=== PATIENT | female | born 1940 | race Caucasian/White ===

== ENCOUNTER 2016-12-18 17:55 | Emergency (ER) | payer MEDICARE, OTHER ==
[2016-12-18 18:32] VITALS: BP 143/80
--- NOTE | 2016-12-18 18:48 | EDM.PDOC ---
ED HPI GENERAL MEDICAL PROBLEM - General Chief Complaint: Upper Extremity Injury/Pain Stated Complaint: Fall at home, Left shoulder injury Time Seen by Provider: 12/18/16 18:30 Source of Information: Reports: Patient History Limitations: Reports: No Limitations - History of Present Illness INITIAL COMMENTS - FREE TEXT/NARRATIVE: Patient is a 76-year-old female who was presented to the ER with daughter stating that she was at home and fell hitting her left shoulder she underwent a left shoulder replacement about a month ago and now is working on physical therapy she called her surgeon and was asked to come in for evaluation Onset: Today Duration: Hour(s): Location: Reports: Upper Extremity, Left (Left shoulder) Quality: Reports: Ache Severity: Mild Improves with: Reports: Rest Worsens with: Reports: None Context: Reports: Trauma - Related Data Allergies Allergy/AdvReac Type Severity Reaction Status Date / Time Sulfa (Sulfonamide Allergy Hives Verified 12/18/16 17:57 Antibiotics) zolpidem [From Ambien] Allergy Hallucinati Verified 12/18/16 17:57 ons Home Meds: Home Meds Acetaminophen [Acetaminophen Extra Strength] 1,000 mg PO Q6HR PRN 12/18/16 [ History] Ascorbic Acid [Vitamin C] 1,000 mg PO DAILY 12/18/16 [History] Aspirin [Halfprin] 81 mg PO DAILY 12/18/16 [History] Calcium Carbonate [Tums] 500 mg PO DAILY PRN 12/18/16 [History] Cephalexin 250 mg PO BEDTIME 12/18/16 [History] Cholecalciferol (Vitamin D3) [Vitamin D3] 2,000 unit PO DAILY 12/18/16 [History] Cyanocobalamin (Vitamin B12) [Vitamin B12] 500 mcg PO DAILY 12/18/16 [History] Fish Oil/Jackson-3 Fatty Acids [Fish Oil 1,000 MG] 3,000 mg PO DAILY 12/18/16 [ History] L.acidoph,Paracasei, B.lactis [Probiotic] 1 cap PO BID 12/18/16 [History] Losartan [Cozaar] 100 mg PO DAILY 12/18/16 [History] Multivitamins [Tab-A-Moises] 1 tab PO DAILY 12/18/16 [History] Propranolol [Inderal LA] 60 mg PO DAILY 12/18/16 [History] Simvastatin [Zocor] 20 mg PO BEDTIME 12/18/16 [History] amLODIPine [Norvasc] 5 mg PO QAM 12/18/16 [History] metFORMIN [Glucophage] 1,000 mg PO BID 12/18/16 [History] Past Medical History - Past Surgical History Musculoskeletal Surgical History: Reports: Knee Replacement, Shoulder Replacement Other Musculoskeletal Surgeries/Procedures:: Left shoulder replacement, bilateral knee replacement. Social & Family History - Tobacco Use Smoking Status *Q: Never Smoker - Recreational Drug Use Recreational Drug Use: No Review of Systems - Review of Systems Review Of Systems: See Below Constitutional: Reports: No Symptoms Eyes: Reports: No Symptoms Ears: Reports: Other (Left hearing aid) Nose: Reports: No Symptoms Mouth/Throat: Reports: No Symptoms Respiratory: Reports: No Symptoms Cardiovascular: Reports: No Symptoms GI/Abdominal: Reports: No Symptoms Genitourinary: Reports: No Symptoms Musculoskeletal: Reports: Shoulder Pain (Secondary to left shoulder replacement) Skin: Reports: No Symptoms Neurological: Reports: No Symptoms Psychiatric: Reports: No Symptoms ED EXAM, GENERAL - Physical Exam Exam: See Below Exam Limited By: No Limitations General Appearance: Alert, WD/WN, No Apparent Distress Ears: Normal External Exam, Normal Canal, Hearing Grossly Normal, Normal TMs Nose: Normal Inspection, Normal Mucosa, No Blood Throat/Mouth: Normal Inspection Head: Atraumatic, Normocephalic Neck: Normal Inspection, Supple, Non-Tender, Full Range of Motion Respiratory/Chest: No Respiratory Distress, Lungs Clear, Normal Breath Sounds, No Accessory Muscle Use, Chest Non-Tender Cardiovascular: Normal Peripheral Pulses, Regular Rate, Rhythm, No Edema, No Gallop, No JVD, No Murmur, No Rub GI/Abdominal: Normal Bowel Sounds, Soft, Non-Tender, No Organomegaly, No Distention, No Abnormal Bruit, No Mass Back Exam: Normal Inspection, Full Range of Motion, NT Extremities: Normal Inspection, Normal Range of Motion, Non-Tender, No Pedal Edema, Normal Capillary Refill, Other (Left shoulder limited range of motion secondary to surgery) Neurological: Alert, Oriented, CN II-XII Intact, Normal Cognition, Normal Gait, Normal Reflexes, No Motor/Sensory Deficits Course - Vital Signs Last Recorded V/S: Last Vital Signs Temp 98.9 F 12/18/16 18:29 Pulse 68 10/04/17 18:29 Resp 14 12/18/16 18:29 BP 143/80 H 12/18/16 18:29 Pulse Ox 98 12/18/16 18:29 - Orders/Labs/Meds Orders: Active Orders 24 hr Category Date Time Status Shoulder Comp Lt [CR] Stat Exams 12/18/16 18:26 Ordered Departure - Departure Time of Disposition: 18:47 Disposition: Home, Self-Care 01 Condition: Good Clinical Impression: Status post reverse total arthroplasty of left shoulder - Discharge Information Referrals: Martina Ralph PA [Primary Care Provider] - Care Plan Goals: X-rays obtained shoulder appears to be in correct position with no limitations of motion as compared to prior to surgery patient denies any major pain - My Orders Last 24 Hours: My Active Orders 12/18/16 18:26 Shoulder Comp Lt [CR] Stat - Assessment/Plan Last 24 Hours: My Active Orders 12/18/16 18:26 Shoulder Comp Lt [CR] Stat
== END 2016-12-18 20:00 | disposition home or self-care (01) ==
LOC: LL.ED 17:55
DX: Z47.1 Aftercare following joint replacement surgery (principal); Z96.612 Presence of left artificial shoulder joint; Z88.2 Allergy status to sulfonamides; Z88.8 Allergy status to other drugs, medicaments and biological substances; Z79.82 Long term (current) use of aspirin; Z79.84 Long term (current) use of oral hypoglycemic drugs; Z79.899 Other long term (current) drug therapy; Z96.653 Presence of artificial knee joint, bilateral
CPT/HCPCS: 73030-LT; 99283

== ENCOUNTER 2021-10-23 20:52 | Inpatient (IN) | payer MEDICARE, OTHER ==
[2021-10-23] MEDS ORDERED: Sodium Chloride 0.9% 10 ML Syringe FLUSH PRN (20:57)
[2021-10-23] MEDS ORDERED: Sodium Chloride 0.9% 1,000 ML IV ONE (21:24)
[2021-10-23 21:57] LABS: CHLORIDE,CL 103 mmol/L (98-107); SODIUM,NA 135 mmol/L (136-145)
[2021-10-23 22:07] LABS: ANION GAP 13.6 meq/L (7-15); ESTIMATED GFR 31 mL/min (>=60)
[2021-10-23] MEDS ORDERED: Iopamidol 755 Mg/ML 100 ML Bottle IVPUSH ONE (22:25)
[2021-10-23] MEDS ORDERED: Diazepam 5 MG Tab PO ONE (22:33)
[2021-10-23] MEDS ORDERED: Morphine 2 MG/ML SYRINGE IVPUSH ONE (22:33)
[2021-10-23] MEDS ORDERED: Ondansetron 4 MG/2 ML SDV IVPUSH ONE (22:33)
[2021-10-23 22:57] LABS: CORONAVIRUS COVID-19 NAA NEGATIVE (NEGATIVE); RESPIRATORY SYNCYTIAL VIR NAA NEGATIVE (NEGATIVE)
[2021-10-24] MEDS ORDERED: Acetaminophen 325 MG Tab PO PRN (00:52)
[2021-10-24] MEDS ORDERED: Sodium Chloride 0.9% 1,000 ML IV SCH ×2 (01:00→14:00)
[2021-10-24] MEDS: cefTRIAXone 1 GM in Sodium Chloride 0.9% 100 ML IV SCH (01:21)
[2021-10-24] MEDS ORDERED: Calcium Carbonate 500 MG Tab.Chew PO PRN (11:24)
[2021-10-24] MEDS ORDERED: Propranolol 60 MG Cap.ER PO SCH (11:30)
[2021-10-24] MEDS ORDERED: Non-Formulary Medication 1 Each (Fluoxetine Hcl [Fluoxetine Hcl] 40 MG Capsule) PO SCH (11:30)
[2021-10-24] MEDS ORDERED: Non-Formulary Medication 1 Each (Losartan [Cozaar] 100 MG Tablet) PO SCH (11:30)
[2021-10-24] MEDS ORDERED: Furosemide 40 MG Tab PO SCH (11:30)
[2021-10-24] MEDS ORDERED: Furosemide 20 MG/2 ML VIAL IVPUSH ONE (11:35)
[2021-10-24] MEDS ORDERED: Losartan 50 MG Tab PO SCH (11:45)
[2021-10-24] MEDS ORDERED: Furosemide 20 MG Tab PO SCH (11:45)
[2021-10-24] MEDS ORDERED: amLODIPine 5 MG Tab PO SCH (11:45)
[2021-10-24] MEDS: FLUoxetine 20 MG Cap PO SCH (11:59)
[2021-10-24] MEDS: Potassium Chloride 20 MEQ Tab.ER PO SCH (11:59)
[2021-10-24] MEDS: Cholecalciferol (Vitamin D3) 25 MCG Tab PO SCH (11:59)
[2021-10-24 13:41] LABS: ANION GAP 13.8 meq/L (7-15); CHLORIDE,CL 103 mmol/L (98-107); ESTIMATED GFR 41 mL/min (>=60); SODIUM,NA 133 mmol/L (136-145)
[2021-10-24] MEDS: Propranolol 20 MG Tab PO SCH (18:04)
[2021-10-24] MEDS: QUEtiapine 25 MG Tab PO SCH (20:02)
[2021-10-24] MEDS: Simvastatin 20 MG Tab PO SCH (20:03)
[2021-10-24] MEDS: Enoxaparin 40 MG/0.4 ML Syringe SUBCUT SCH (21:49)
[2021-10-25] MEDS: cefTRIAXone 1 GM in Sodium Chloride 0.9% 100 ML IV SCH (00:55)
[2021-10-25] MEDS: Potassium Chloride 20 MEQ Tab.ER PO SCH (07:45)
[2021-10-25] MEDS: Cholecalciferol (Vitamin D3) 25 MCG Tab PO SCH (07:46)
[2021-10-25] MEDS: FLUoxetine 20 MG Cap PO SCH (07:46)
[2021-10-25] MEDS: amLODIPine 5 MG Tab PO SCH (07:46)
[2021-10-25] MEDS: Losartan 50 MG Tab PO SCH (07:47)
[2021-10-25] MEDS: Propranolol 20 MG Tab PO SCH ×2 (07:48→17:48)
[2021-10-25] MEDS: Furosemide 20 MG Tab PO SCH (07:48)
[2021-10-25] MEDS: PHENTERMINE HCL 37.5 MG PO SCH (07:51)
[2021-10-25 08:13] LABS: ANION GAP 6.6 meq/L (7-15)
[2021-10-25] MEDS: Enoxaparin 40 MG/0.4 ML Syringe SUBCUT SCH (19:34)
[2021-10-25] MEDS: QUEtiapine 25 MG Tab PO SCH (19:34)
[2021-10-25] MEDS: Simvastatin 20 MG Tab PO SCH (19:35)
[2021-10-26] MEDS: cefTRIAXone 1 GM in Sodium Chloride 0.9% 100 ML IV SCH (01:10)
[2021-10-26] MEDS: Cholecalciferol (Vitamin D3) 25 MCG Tab PO SCH (07:20)
[2021-10-26] MEDS: FLUoxetine 20 MG Cap PO SCH (07:20)
[2021-10-26] MEDS: metFORMIN 500 MG Tab PO SCH ×2 (07:21→17:24)
[2021-10-26] MEDS: Propranolol 20 MG Tab PO SCH ×2 (07:21→17:24)
[2021-10-26] MEDS: Furosemide 20 MG Tab PO SCH (07:22)
[2021-10-26] MEDS: amLODIPine 5 MG Tab PO SCH (07:23)
[2021-10-26] MEDS: Potassium Chloride 20 MEQ Tab.ER PO SCH (07:23)
[2021-10-26] MEDS: Losartan 50 MG Tab PO SCH (07:24)
[2021-10-26] MEDS: PHENTERMINE HCL 37.5 MG PO SCH (07:26)
[2021-10-26 08:14] LABS: ANION GAP 7.6 meq/L (7-15)
[2021-10-26] MEDS: Simvastatin 20 MG Tab PO SCH (20:03)
[2021-10-26] MEDS: QUEtiapine 25 MG Tab PO SCH (20:03)
[2021-10-26] MEDS: Enoxaparin 40 MG/0.4 ML Syringe SUBCUT SCH (20:05)
[2021-10-27] MEDS: cefTRIAXone 1 GM in Sodium Chloride 0.9% 100 ML IV SCH (01:33)
[2021-10-27] MEDS: Potassium Chloride 20 MEQ Tab.ER PO SCH (14:20)
[2021-10-27] MEDS: FLUoxetine 20 MG Cap PO SCH (14:20)
[2021-10-27] MEDS: Cholecalciferol (Vitamin D3) 25 MCG Tab PO SCH (14:21)
[2021-10-27] MEDS: Furosemide 20 MG Tab PO SCH (14:21)
[2021-10-27] MEDS: metFORMIN 500 MG Tab PO SCH ×2 (14:22→18:54)
[2021-10-27] MEDS: PHENTERMINE HCL 37.5 MG PO SCH (14:29)
[2021-10-27] MEDS: amLODIPine 5 MG Tab PO SCH (14:35)
[2021-10-27] MEDS: Losartan 50 MG Tab PO SCH (14:35)
[2021-10-27] MEDS: Propranolol 20 MG Tab PO SCH ×2 (14:36→18:54)
[2021-10-27] MEDS: QUEtiapine 25 MG Tab PO SCH (19:19)
[2021-10-27] MEDS: Simvastatin 20 MG Tab PO SCH (19:19)
[2021-10-27] MEDS: Enoxaparin 40 MG/0.4 ML Syringe SUBCUT SCH (19:19)
[2021-10-28] MEDS: cefTRIAXone 1 GM in Sodium Chloride 0.9% 100 ML IV SCH (00:34)
[2021-10-28] MEDS: Cholecalciferol (Vitamin D3) 25 MCG Tab PO SCH (08:49)
[2021-10-28] MEDS: amLODIPine 5 MG Tab PO SCH (08:50)
[2021-10-28] MEDS: metFORMIN 500 MG Tab PO SCH ×2 (08:51→18:15)
[2021-10-28] MEDS: Potassium Chloride 20 MEQ Tab.ER PO SCH (08:52)
[2021-10-28] MEDS: Losartan 50 MG Tab PO SCH (08:53)
[2021-10-28] MEDS: FLUoxetine 20 MG Cap PO SCH (08:54)
[2021-10-28] MEDS: Propranolol 20 MG Tab PO SCH ×2 (08:54→18:14)
[2021-10-28] MEDS: Furosemide 20 MG Tab PO SCH (08:55)
[2021-10-28] MEDS: Ondansetron 4 MG/2 ML SDV IVPUSH PRN (13:00)
[2021-10-28] MEDS: PHENTERMINE HCL 37.5 MG PO SCH (14:31)
[2021-10-28] MEDS: QUEtiapine 25 MG Tab PO SCH (19:54)
[2021-10-28] MEDS: Enoxaparin 40 MG/0.4 ML Syringe SUBCUT SCH (19:54)
[2021-10-28] MEDS: Simvastatin 20 MG Tab PO SCH (19:54)
[2021-10-29] MEDS: cefTRIAXone 1 GM in Sodium Chloride 0.9% 100 ML IV SCH (01:57)
[2021-10-29] MEDS ORDERED: Alendronate 70 MG Tab PO SCH (06:00)
[2021-10-29] MEDS: Losartan 50 MG Tab PO SCH (07:48)
[2021-10-29] MEDS: Propranolol 20 MG Tab PO SCH ×2 (07:48→19:52)
[2021-10-29] MEDS: metFORMIN 500 MG Tab PO SCH ×2 (07:48→19:52)
[2021-10-29] MEDS: FLUoxetine 20 MG Cap PO SCH (07:48)
[2021-10-29] MEDS: amLODIPine 5 MG Tab PO SCH (07:49)
[2021-10-29] MEDS: Potassium Chloride 20 MEQ Tab.ER PO SCH (07:49)
[2021-10-29] MEDS: Cholecalciferol (Vitamin D3) 25 MCG Tab PO SCH (07:49)
[2021-10-29] MEDS: Furosemide 20 MG Tab PO SCH (07:49)
[2021-10-29] MEDS: PHENTERMINE HCL 37.5 MG PO SCH (07:52)
[2021-10-29] MEDS: QUEtiapine 25 MG Tab PO SCH (19:51)
[2021-10-29] MEDS: Enoxaparin 40 MG/0.4 ML Syringe SUBCUT SCH (19:51)
[2021-10-29] MEDS: Simvastatin 20 MG Tab PO SCH (19:52)
[2021-10-29] MEDS: Ciprofloxacin 500 MG Tab PO SCH (19:52)
[2021-10-30] MEDS: Ondansetron 4 MG/2 ML SDV IVPUSH PRN (07:48)
[2021-10-30] MEDS: Furosemide 20 MG Tab PO SCH (08:00)
[2021-10-30] MEDS: amLODIPine 5 MG Tab PO SCH (08:04)
[2021-10-30] MEDS: Cholecalciferol (Vitamin D3) 25 MCG Tab PO SCH (08:04)
[2021-10-30] MEDS: FLUoxetine 20 MG Cap PO SCH (08:05)
[2021-10-30] MEDS: Ciprofloxacin 500 MG Tab PO SCH (08:05)
[2021-10-30] MEDS: metFORMIN 500 MG Tab PO SCH (08:06)
[2021-10-30] MEDS: Losartan 50 MG Tab PO SCH (08:06)
[2021-10-30] MEDS: Potassium Chloride 20 MEQ Tab.ER PO SCH (08:07)
[2021-10-30] MEDS: Propranolol 20 MG Tab PO SCH (08:08)
[2021-10-30] MEDS: PHENTERMINE HCL 37.5 MG PO SCH (08:17)
[2021-10-30 09:11] LABS: ANION GAP 11.8 meq/L (7-15)
[2021-10-30 15:48] VITALS: BP 131/85; PULSE 84
== END 2021-10-30 15:28 | disposition swing bed (61) | DRG 683 ==
LOC: LL.ED 20:52 → LL.MS 10-24 00:29 → OBSVTOIN 10-24 10:01
PROVIDERS: ADMIT Emergency Medicine; ATTEND Emergency Medicine
DX: N17.9 Acute kidney failure, unspecified (principal); N30.00 Acute cystitis without hematuria; I10 Essential (primary) hypertension; E11.9 Type 2 diabetes mellitus without complications; R32 Unspecified urinary incontinence; Z96.653 Presence of artificial knee joint, bilateral; Z20.822 Contact with and (suspected) exposure to COVID-19; E78.5 Hyperlipidemia, unspecified; Z88.2 Allergy status to sulfonamides; Z88.8 Allergy status to other drugs, medicaments and biological substances; Z79.82 Long term (current) use of aspirin; Z79.899 Other long term (current) drug therapy; Z79.84 Long term (current) use of oral hypoglycemic drugs
CPT/HCPCS: 0241U; 36415; 70450; 71045; 71275; 74177; 80048; 80053; 81001; 81003; 82140; 82728; 82947; 83540; 83550; 83605; 83735; 83880; 85025; 85379; 85610; 87040; 87077; 87086; 87088; 87186; 96360; 96361; 97110-GP; 97162-GP; 97165-GO; 97530-GO; 97530-GP; 99285-25; A9270-GY; J0696; J1650; J1940; J2405; J3490; J7030; Q9967

== ENCOUNTER 2021-10-29 15:27 | Inpatient (IN) | payer MEDICARE, OTHER ==
[2021-10-30] MEDS ORDERED: Calcium Carbonate 500 MG Tab.Chew PO PRN (20:10)
[2021-10-30] MEDS ORDERED: hydrOXYzine Pamoate 25 MG Cap PO PRN (20:10)
[2021-10-30] MEDS ORDERED: Non-Formulary Medication 1 Each (Metformin Hcl [Metformin Hcl Er] 500 MG) PO SCH (20:45)
[2021-10-30] MEDS ORDERED: Ciprofloxacin 500 MG Tab PO ONE (20:46)
[2021-10-30] MEDS: metFORMIN 500 MG Tab PO SCH (21:30)
[2021-10-30] MEDS: Propranolol 20 MG Tab PO SCH (21:31)
[2021-10-30] MEDS: Enoxaparin 40 MG/0.4 ML Syringe SUBCUT SCH (21:31)
[2021-10-30] MEDS: QUEtiapine 25 MG Tab PO SCH (22:04)
[2021-10-30] MEDS: Simvastatin 20 MG Tab PO SCH (22:04)
[2021-10-31] MEDS ORDERED: Sodium Chloride 0.9% 10 ML Syringe FLUSH PRN (01:00)
[2021-10-31] MEDS ORDERED: Non-Formulary Medication 1 Each (Metformin Hcl [Metformin Hcl Er] 500 MG Tab.Er.24h) PO SCH (08:00)
[2021-10-31] MEDS ORDERED: Gabapentin 100 MG Cap PO SCH (08:00)
[2021-10-31] MEDS ORDERED: Propranolol 20 MG Tab PO SCH (08:00)
[2021-10-31] MEDS: Potassium Chloride 20 MEQ Tab.ER PO SCH (08:38)
[2021-10-31] MEDS: metFORMIN 500 MG Tab PO SCH ×2 (08:39→17:41)
[2021-10-31] MEDS: FLUoxetine 20 MG Cap PO SCH (08:39)
[2021-10-31] MEDS: Furosemide 40 MG Tab PO SCH (08:40)
[2021-10-31] MEDS: Cholecalciferol (Vitamin D3) 25 MCG Tab PO SCH (08:41)
[2021-10-31] MEDS: Cyanocobalamin (Vitamin B12) 1,000 MCG Tab PO SCH (08:41)
[2021-10-31] MEDS: Multivitamin Tab PO SCH (08:41)
[2021-10-31] MEDS: Losartan 50 MG Tab PO SCH (08:58)
[2021-10-31] MEDS: amLODIPine 5 MG Tab PO SCH (08:58)
[2021-10-31] MEDS: Propranolol 20 MG Tab PO SCH ×2 (08:58→17:40)
[2021-10-31] MEDS: Ciprofloxacin 500 MG Tab PO SCH (17:40)
[2021-10-31] MEDS ORDERED: QUEtiapine 25 MG Tab PO SCH (20:00)
[2021-10-31] MEDS ORDERED: Simvastatin 20 MG Tab PO SCH (20:00)
[2021-10-31] MEDS: Simvastatin 20 MG Tab PO SCH (20:24)
[2021-10-31] MEDS: QUEtiapine 25 MG Tab PO SCH (20:24)
[2021-10-31] MEDS: Enoxaparin 40 MG/0.4 ML Syringe SUBCUT SCH (20:25)
[2021-11-01] MEDS: metFORMIN 500 MG Tab PO SCH ×2 (07:27→17:19)
[2021-11-01] MEDS: Losartan 50 MG Tab PO SCH (07:27)
[2021-11-01] MEDS: Ciprofloxacin 500 MG Tab PO SCH ×2 (07:27→17:19)
[2021-11-01] MEDS: amLODIPine 5 MG Tab PO SCH (07:28)
[2021-11-01] MEDS: Potassium Chloride 20 MEQ Tab.ER PO SCH (07:28)
[2021-11-01] MEDS: FLUoxetine 20 MG Cap PO SCH (07:29)
[2021-11-01] MEDS: Propranolol 20 MG Tab PO SCH ×2 (07:30→17:19)
[2021-11-01] MEDS: Furosemide 40 MG Tab PO SCH (07:30)
[2021-11-01] MEDS: Cyanocobalamin (Vitamin B12) 1,000 MCG Tab PO SCH (07:31)
[2021-11-01] MEDS: Cholecalciferol (Vitamin D3) 25 MCG Tab PO SCH (07:31)
[2021-11-01] MEDS: Multivitamin Tab PO SCH (07:31)
[2021-11-01] MEDS: PHENTERMINE HCL 37.5 MG PO SCH (13:00)
[2021-11-01] MEDS: QUEtiapine 25 MG Tab PO SCH (20:13)
[2021-11-01] MEDS: Simvastatin 20 MG Tab PO SCH (20:14)
[2021-11-01] MEDS: Enoxaparin 40 MG/0.4 ML Syringe SUBCUT SCH (20:56)
[2021-11-02] MEDS: metFORMIN 500 MG Tab PO SCH ×2 (07:52→17:25)
[2021-11-02] MEDS: Ciprofloxacin 500 MG Tab PO SCH ×2 (07:54→17:26)
[2021-11-02] MEDS: Losartan 50 MG Tab PO SCH (07:55)
[2021-11-02] MEDS: Propranolol 20 MG Tab PO SCH ×2 (07:56→17:26)
[2021-11-02] MEDS: Potassium Chloride 20 MEQ Tab.ER PO SCH (07:57)
[2021-11-02] MEDS: amLODIPine 5 MG Tab PO SCH (07:59)
[2021-11-02] MEDS: FLUoxetine 20 MG Cap PO SCH (08:00)
[2021-11-02] MEDS: Cholecalciferol (Vitamin D3) 25 MCG Tab PO SCH (08:01)
[2021-11-02] MEDS: Cyanocobalamin (Vitamin B12) 1,000 MCG Tab PO SCH (08:01)
[2021-11-02] MEDS: Multivitamin Tab PO SCH (08:01)
[2021-11-02] MEDS: Furosemide 40 MG Tab PO SCH (08:29)
[2021-11-02] MEDS: Simvastatin 20 MG Tab PO SCH (19:27)
[2021-11-02] MEDS: QUEtiapine 25 MG Tab PO SCH (19:27)
[2021-11-02] MEDS: Melatonin 3 MG Tab PO SCH (19:27)
[2021-11-02] MEDS: Enoxaparin 40 MG/0.4 ML Syringe SUBCUT SCH (20:26)
[2021-11-03] MEDS: metFORMIN 500 MG Tab PO SCH ×2 (07:48→16:58)
[2021-11-03] MEDS: Losartan 50 MG Tab PO SCH (07:49)
[2021-11-03] MEDS: Ciprofloxacin 500 MG Tab PO SCH ×2 (07:49→16:59)
[2021-11-03] MEDS: Propranolol 20 MG Tab PO SCH ×2 (07:50→16:59)
[2021-11-03] MEDS: Potassium Chloride 20 MEQ Tab.ER PO SCH (07:50)
[2021-11-03] MEDS: Furosemide 40 MG Tab PO SCH (07:51)
[2021-11-03] MEDS: amLODIPine 5 MG Tab PO SCH (07:51)
[2021-11-03] MEDS: FLUoxetine 20 MG Cap PO SCH (07:52)
[2021-11-03] MEDS: Multivitamin Tab PO SCH (07:53)
[2021-11-03] MEDS: Cyanocobalamin (Vitamin B12) 1,000 MCG Tab PO SCH (07:53)
[2021-11-03] MEDS: Cholecalciferol (Vitamin D3) 25 MCG Tab PO SCH (07:53)
[2021-11-03] MEDS: Mirtazapine 15 MG Tab PO SCH (19:40)
[2021-11-03] MEDS: QUEtiapine 25 MG Tab PO SCH (19:42)
[2021-11-03] MEDS: Simvastatin 20 MG Tab PO SCH (19:42)
[2021-11-03] MEDS: Melatonin 3 MG Tab PO SCH (19:43)
[2021-11-03] MEDS: Enoxaparin 40 MG/0.4 ML Syringe SUBCUT SCH (20:18)
[2021-11-04] MEDS: Losartan 50 MG Tab PO SCH (07:36)
[2021-11-04] MEDS: Potassium Chloride 20 MEQ Tab.ER PO SCH (07:37)
[2021-11-04] MEDS: Propranolol 20 MG Tab PO SCH ×2 (07:37→17:05)
[2021-11-04] MEDS: Furosemide 40 MG Tab PO SCH (07:37)
[2021-11-04] MEDS: amLODIPine 5 MG Tab PO SCH (07:38)
[2021-11-04] MEDS: FLUoxetine 20 MG Cap PO SCH (07:39)
[2021-11-04] MEDS: Cholecalciferol (Vitamin D3) 25 MCG Tab PO SCH (07:40)
[2021-11-04] MEDS: Cyanocobalamin (Vitamin B12) 1,000 MCG Tab PO SCH (07:40)
[2021-11-04] MEDS: Multivitamin Tab PO SCH (07:40)
[2021-11-04] MEDS: Ciprofloxacin 500 MG Tab PO SCH ×2 (07:47→17:05)
[2021-11-04] MEDS: metFORMIN 500 MG Tab PO SCH ×2 (07:49→17:05)
[2021-11-04] MEDS: Simvastatin 20 MG Tab PO SCH (20:09)
[2021-11-04] MEDS: Mirtazapine 15 MG Tab PO SCH (20:10)
[2021-11-04] MEDS: QUEtiapine 25 MG Tab PO SCH (20:11)
[2021-11-04] MEDS: Enoxaparin 40 MG/0.4 ML Syringe SUBCUT SCH (20:12)
[2021-11-04] MEDS: Melatonin 3 MG Tab PO SCH (20:12)
[2021-11-05] MEDS: Alendronate 70 MG Tab PO SCH (05:29)
[2021-11-05] MEDS: Potassium Chloride 20 MEQ Tab.ER PO SCH (07:02)
[2021-11-05] MEDS: Propranolol 20 MG Tab PO SCH ×2 (07:02→17:07)
[2021-11-05] MEDS: Furosemide 40 MG Tab PO SCH (07:03)
[2021-11-05] MEDS: metFORMIN 500 MG Tab PO SCH ×2 (07:04→17:06)
[2021-11-05] MEDS: FLUoxetine 20 MG Cap PO SCH (07:04)
[2021-11-05] MEDS: Losartan 50 MG Tab PO SCH (07:05)
[2021-11-05] MEDS: Ciprofloxacin 500 MG Tab PO SCH ×2 (07:05→17:07)
[2021-11-05] MEDS: amLODIPine 5 MG Tab PO SCH (07:06)
[2021-11-05] MEDS: Multivitamin Tab PO SCH (07:06)
[2021-11-05] MEDS: Cyanocobalamin (Vitamin B12) 1,000 MCG Tab PO SCH (07:07)
[2021-11-05] MEDS: Cholecalciferol (Vitamin D3) 25 MCG Tab PO SCH (07:07)
[2021-11-05] MEDS: Melatonin 3 MG Tab PO SCH (20:28)
[2021-11-05] MEDS: Mirtazapine 15 MG Tab PO SCH (20:29)
[2021-11-05] MEDS: Simvastatin 20 MG Tab PO SCH (20:30)
[2021-11-05] MEDS: QUEtiapine 25 MG Tab PO SCH (20:30)
[2021-11-05] MEDS: Enoxaparin 40 MG/0.4 ML Syringe SUBCUT SCH (20:30)
[2021-11-06] MEDS: Losartan 50 MG Tab PO SCH (07:13)
[2021-11-06] MEDS: amLODIPine 5 MG Tab PO SCH (07:14)
[2021-11-06] MEDS: Furosemide 40 MG Tab PO SCH (07:14)
[2021-11-06] MEDS: Potassium Chloride 20 MEQ Tab.ER PO SCH (07:14)
[2021-11-06] MEDS: metFORMIN 500 MG Tab PO SCH ×2 (07:15→17:33)
[2021-11-06] MEDS: FLUoxetine 20 MG Cap PO SCH (07:15)
[2021-11-06] MEDS: Cholecalciferol (Vitamin D3) 25 MCG Tab PO SCH (07:16)
[2021-11-06] MEDS: Ciprofloxacin 500 MG Tab PO SCH ×2 (07:16→17:33)
[2021-11-06] MEDS: Multivitamin Tab PO SCH (07:16)
[2021-11-06] MEDS: Propranolol 20 MG Tab PO SCH ×2 (07:16→17:33)
[2021-11-06] MEDS: Cyanocobalamin (Vitamin B12) 1,000 MCG Tab PO SCH (07:17)
[2021-11-06] MEDS ORDERED: Polyethylene Glycol 3350 Powder 17 GM Packet PO ONE (18:50)
[2021-11-06] MEDS: Mirtazapine 15 MG Tab PO SCH (20:09)
[2021-11-06] MEDS: Melatonin 3 MG Tab PO SCH (20:09)
[2021-11-06] MEDS: QUEtiapine 25 MG Tab PO SCH (20:10)
[2021-11-06] MEDS: Simvastatin 20 MG Tab PO SCH (20:10)
[2021-11-06] MEDS: Enoxaparin 40 MG/0.4 ML Syringe SUBCUT SCH (20:13)
[2021-11-07] MEDS: Multivitamin Tab PO SCH (07:40)
[2021-11-07] MEDS: FLUoxetine 20 MG Cap PO SCH (07:41)
[2021-11-07] MEDS: Furosemide 40 MG Tab PO SCH (07:41)
[2021-11-07] MEDS: Cyanocobalamin (Vitamin B12) 1,000 MCG Tab PO SCH (07:41)
[2021-11-07] MEDS: Cholecalciferol (Vitamin D3) 25 MCG Tab PO SCH (07:41)
[2021-11-07] MEDS: Propranolol 20 MG Tab PO SCH ×2 (07:42→17:16)
[2021-11-07] MEDS: metFORMIN 500 MG Tab PO SCH ×2 (07:42→17:17)
[2021-11-07] MEDS: Potassium Chloride 20 MEQ Tab.ER PO SCH (07:42)
[2021-11-07] MEDS: amLODIPine 5 MG Tab PO SCH (07:42)
[2021-11-07] MEDS: Ciprofloxacin 500 MG Tab PO SCH ×2 (07:43→17:18)
[2021-11-07] MEDS: Losartan 50 MG Tab PO SCH (07:43)
[2021-11-07] MEDS ORDERED: Acetaminophen 325 MG Tab PO PRN (11:31)
[2021-11-07] MEDS: Polyethylene Glycol 3350 Powder 510 GM Bot PO PRN (13:25)
[2021-11-07 15:59] LABS: ANION GAP 7.8 meq/L (7-15); CHLORIDE,CL 104 mmol/L (98-107); SODIUM,NA 138 mmol/L (136-145)
[2021-11-07 16:00] LABS: ESTIMATED GFR 25 mL/min (>=60)
[2021-11-07] MEDS ORDERED: LORazepam 0.5 MG Tab PO PRN (16:00)
[2021-11-07] MEDS: hydrOXYzine Pamoate 25 MG Cap PO SCH (17:18)
[2021-11-07] MEDS: Melatonin 3 MG Tab PO SCH (20:01)
[2021-11-07] MEDS: QUEtiapine 25 MG Tab PO SCH (20:02)
[2021-11-07] MEDS: Simvastatin 20 MG Tab PO SCH (20:03)
[2021-11-08] MEDS: metFORMIN 500 MG Tab PO SCH (07:43)
[2021-11-08] MEDS: Ciprofloxacin 500 MG Tab PO SCH (07:44)
[2021-11-08] MEDS: Losartan 50 MG Tab PO SCH (07:44)
[2021-11-08] MEDS: amLODIPine 5 MG Tab PO SCH (07:45)
[2021-11-08] MEDS: Potassium Chloride 20 MEQ Tab.ER PO SCH (07:45)
[2021-11-08] MEDS: Propranolol 20 MG Tab PO SCH ×2 (07:45→17:03)
[2021-11-08] MEDS: Multivitamin Tab PO SCH (07:46)
[2021-11-08] MEDS: FLUoxetine 20 MG Cap PO SCH (07:46)
[2021-11-08] MEDS: Cyanocobalamin (Vitamin B12) 1,000 MCG Tab PO SCH (07:47)
[2021-11-08] MEDS: hydrOXYzine Pamoate 25 MG Cap PO SCH ×3 (07:47→17:02)
[2021-11-08] MEDS: Cholecalciferol (Vitamin D3) 25 MCG Tab PO SCH (07:47)
[2021-11-08] MEDS: Polyethylene Glycol 3350 Powder 510 GM Bot PO PRN (08:09)
[2021-11-08 11:02] LABS: ANION GAP 7.8 meq/L (7-15)
[2021-11-08] MEDS: Simvastatin 20 MG Tab PO SCH (19:53)
[2021-11-08] MEDS: QUEtiapine 25 MG Tab PO SCH (19:53)
[2021-11-08] MEDS: Melatonin 3 MG Tab PO SCH (19:55)
[2021-11-09] MEDS: Levothyroxine 25 MCG Tab PO SCH (07:40)
[2021-11-09] MEDS: Losartan 25 MG Tab PO SCH (08:33)
[2021-11-09] MEDS: Propranolol 20 MG Tab PO SCH ×2 (08:34→18:03)
[2021-11-09] MEDS: FLUoxetine 20 MG Cap PO SCH (08:35)
[2021-11-09] MEDS: Potassium Chloride 20 MEQ Tab.ER PO SCH (08:35)
[2021-11-09] MEDS: Cholecalciferol (Vitamin D3) 25 MCG Tab PO SCH (08:36)
[2021-11-09] MEDS: hydrOXYzine Pamoate 25 MG Cap PO SCH ×3 (08:37→18:02)
[2021-11-09] MEDS: Cyanocobalamin (Vitamin B12) 1,000 MCG Tab PO SCH (08:37)
[2021-11-09] MEDS: Multivitamin Tab PO SCH (08:42)
[2021-11-09] MEDS: Furosemide 40 MG Tab PO SCH (12:08)
[2021-11-09] MEDS: QUEtiapine 25 MG Tab PO SCH (20:01)
[2021-11-09] MEDS: Simvastatin 20 MG Tab PO SCH (20:02)
[2021-11-09] MEDS: Melatonin 3 MG Tab PO SCH (20:03)
[2021-11-10] MEDS: hydrOXYzine Pamoate 25 MG Cap PO SCH ×3 (07:11→17:21)
[2021-11-10] MEDS: Furosemide 40 MG Tab PO SCH (07:12)
[2021-11-10] MEDS: Potassium Chloride 20 MEQ Tab.ER PO SCH (07:12)
[2021-11-10] MEDS: FLUoxetine 20 MG Cap PO SCH (07:13)
[2021-11-10] MEDS: Losartan 25 MG Tab PO SCH (07:13)
[2021-11-10] MEDS: Levothyroxine 25 MCG Tab PO SCH (07:13)
[2021-11-10] MEDS: Cholecalciferol (Vitamin D3) 25 MCG Tab PO SCH (07:14)
[2021-11-10] MEDS: Propranolol 20 MG Tab PO SCH ×2 (07:14→17:21)
[2021-11-10] MEDS: Multivitamin Tab PO SCH (07:14)
[2021-11-10] MEDS: Cyanocobalamin (Vitamin B12) 1,000 MCG Tab PO SCH (07:15)
[2021-11-10] MEDS: Simvastatin 20 MG Tab PO SCH (19:54)
[2021-11-10] MEDS: QUEtiapine 25 MG Tab PO SCH (19:55)
[2021-11-10] MEDS: Melatonin 3 MG Tab PO SCH (19:56)
[2021-11-11] MEDS: Potassium Chloride 20 MEQ Tab.ER PO SCH (07:06)
[2021-11-11] MEDS: FLUoxetine 20 MG Cap PO SCH (07:06)
[2021-11-11] MEDS: Losartan 25 MG Tab PO SCH (07:07)
[2021-11-11] MEDS: Furosemide 40 MG Tab PO SCH (07:07)
[2021-11-11] MEDS: Levothyroxine 25 MCG Tab PO SCH (07:07)
[2021-11-11] MEDS: Propranolol 20 MG Tab PO SCH ×2 (07:08→17:05)
[2021-11-11] MEDS: Multivitamin Tab PO SCH (07:08)
[2021-11-11] MEDS: hydrOXYzine Pamoate 25 MG Cap PO SCH ×3 (07:08→17:05)
[2021-11-11] MEDS: Cholecalciferol (Vitamin D3) 25 MCG Tab PO SCH (07:09)
[2021-11-11] MEDS: Cyanocobalamin (Vitamin B12) 1,000 MCG Tab PO SCH (07:09)
[2021-11-11] MEDS: Simvastatin 20 MG Tab PO SCH (19:56)
[2021-11-11] MEDS: QUEtiapine 25 MG Tab PO SCH (19:56)
[2021-11-11] MEDS: Melatonin 3 MG Tab PO SCH (19:58)
[2021-11-12] MEDS: Alendronate 70 MG Tab PO SCH (05:55)
[2021-11-12] MEDS: Levothyroxine 25 MCG Tab PO SCH (07:44)
[2021-11-12] MEDS: Losartan 25 MG Tab PO SCH (07:45)
[2021-11-12] MEDS: Propranolol 20 MG Tab PO SCH ×2 (07:45→17:02)
[2021-11-12] MEDS: Potassium Chloride 20 MEQ Tab.ER PO SCH (07:46)
[2021-11-12] MEDS: FLUoxetine 20 MG Cap PO SCH (07:46)
[2021-11-12] MEDS: Furosemide 40 MG Tab PO SCH (07:46)
[2021-11-12] MEDS: hydrOXYzine Pamoate 25 MG Cap PO SCH ×3 (07:47→17:02)
[2021-11-12] MEDS: Multivitamin Tab PO SCH (07:47)
[2021-11-12] MEDS: Cyanocobalamin (Vitamin B12) 1,000 MCG Tab PO SCH (07:47)
[2021-11-12] MEDS: Cholecalciferol (Vitamin D3) 25 MCG Tab PO SCH (07:47)
[2021-11-12] MEDS: Simvastatin 20 MG Tab PO SCH (19:58)
[2021-11-12] MEDS: QUEtiapine 25 MG Tab PO SCH (19:59)
[2021-11-12] MEDS: Melatonin 3 MG Tab PO SCH (19:59)
[2021-11-13] MEDS: Levothyroxine 25 MCG Tab PO SCH (07:30)
[2021-11-13] MEDS: Losartan 25 MG Tab PO SCH (07:31)
[2021-11-13] MEDS: Potassium Chloride 20 MEQ Tab.ER PO SCH (07:32)
[2021-11-13] MEDS: Furosemide 40 MG Tab PO SCH (07:32)
[2021-11-13] MEDS: Propranolol 20 MG Tab PO SCH (07:32)
[2021-11-13] MEDS: FLUoxetine 20 MG Cap PO SCH (07:33)
[2021-11-13] MEDS: Multivitamin Tab PO SCH (07:33)
[2021-11-13] MEDS: hydrOXYzine Pamoate 25 MG Cap PO SCH ×2 (07:34→11:10)
[2021-11-13] MEDS: Cyanocobalamin (Vitamin B12) 1,000 MCG Tab PO SCH (07:34)
[2021-11-13] MEDS: Cholecalciferol (Vitamin D3) 25 MCG Tab PO SCH (07:34)
[2021-11-13 09:01] VITALS: BP 130/91; PULSE 82
[2021-11-13 09:23] LABS: ANION GAP 7.4 meq/L (7-15); CHLORIDE,CL 103 mmol/L (98-107); SODIUM,NA 137 mmol/L (136-145)
[2021-11-13 09:25] LABS: ESTIMATED GFR 52 mL/min (>=60)
== END 2021-11-13 14:10 | disposition other institution (70) | DRG 948 ==
LOC: LL.SWG 10-30 15:42
PROVIDERS: ADMIT Emergency Medicine; ATTEND Physician Assistant
DX: R53.81 Other malaise (principal); N17.9 Acute kidney failure, unspecified; N39.0 Urinary tract infection, site not specified; E83.42 Hypomagnesemia; F41.9 Anxiety disorder, unspecified; I10 Essential (primary) hypertension; E03.9 Hypothyroidism, unspecified; K59.00 Constipation, unspecified; E08.69 Diabetes mellitus due to underlying condition with other specified complication; G43.009 Migraine without aura, not intractable, without status migrainosus; E87.6 Hypokalemia; F32.A Depression, unspecified; D64.9 Anemia, unspecified; E11.9 Type 2 diabetes mellitus without complications; Z79.899 Other long term (current) drug therapy; Z79.890 Hormone replacement therapy; B96.89 Other specified bacterial agents as the cause of diseases classified elsewhere
CPT/HCPCS: 36415; 80048; 80053; 81001; 82140; 82272; 82306; 82607; 82728; 82746; 82947; 83540; 83550; 83735; 83880; 84443; 85025; 86140; 87086; 87088; 87186; 97110-GO; 97110-GP; 97129-GO; 97162-GP; 97530-GO; 97530-GP; 97535-GO; A9270-GY; J1650; Q0177

== ENCOUNTER 2021-11-16 20:39 | Inpatient (IN) | payer MEDICARE, OTHER ==
[2021-11-16] MEDS ORDERED: Ondansetron 4 MG Tab.DIS PO PRN (23:37)
[2021-11-16] MEDS ORDERED: Polyethylene Glycol 3350 Powder 17 GM Packet PO PRN (23:37)
[2021-11-16] MEDS ORDERED: Calcium Carbonate 500 MG Tab.Chew PO PRN (23:40)
[2021-11-17] MEDS: Melatonin 3 MG Tab PO SCH ×2 (00:40→20:18)
[2021-11-17] MEDS ORDERED: Sodium Chloride 0.9% 1,000 ML IV SCH (01:00)
[2021-11-17] MEDS ORDERED: Sodium Chloride 0.9% 250 ML IV SCH (08:00)
[2021-11-17 08:10] LABS: ANION GAP 14.3 meq/L (7-15)
[2021-11-17] MEDS: FLUoxetine 20 MG Cap PO SCH (08:21)
[2021-11-17] MEDS: hydrOXYzine Pamoate 25 MG Cap PO PRN ×2 (08:21→14:48)
[2021-11-17] MEDS: Cholecalciferol (Vitamin D3) 25 MCG Tab PO SCH (08:21)
[2021-11-17] MEDS: Levothyroxine 25 MCG Tab PO SCH (08:21)
[2021-11-17] MEDS: Cyanocobalamin (Vitamin B12) 1,000 MCG Tab PO SCH (08:21)
[2021-11-17] MEDS: Potassium Chloride 20 MEQ Tab.ER PO SCH (08:22)
[2021-11-17] MEDS: Losartan 25 MG Tab PO SCH (08:22)
[2021-11-17] MEDS: Propranolol 20 MG Tab PO SCH ×2 (08:22→18:21)
[2021-11-17] MEDS: Enoxaparin 30 MG/0.3 ML Syringe SUBCUT SCH (08:22)
[2021-11-17] MEDS: Multivitamin Tab PO SCH (08:22)
[2021-11-17] MEDS: Nystatin Topical Powder 15 GM Bottle TOP SCH ×3 (08:22→18:21)
[2021-11-17] MEDS: Acetaminophen 325 MG Tab PO PRN (14:47)
[2021-11-17] MEDS: QUEtiapine 25 MG Tab PO SCH (20:18)
[2021-11-17] MEDS: Simvastatin 20 MG Tab PO SCH (20:18)
[2021-11-18] MEDS: Acetaminophen 325 MG Tab PO PRN ×2 (02:10→15:18)
[2021-11-18 08:24] LABS: ANION GAP 10.8 meq/L (7-15)
[2021-11-18] MEDS: FLUoxetine 20 MG Cap PO SCH (08:49)
[2021-11-18] MEDS: Cholecalciferol (Vitamin D3) 25 MCG Tab PO SCH (08:49)
[2021-11-18] MEDS: Levothyroxine 25 MCG Tab PO SCH (08:50)
[2021-11-18] MEDS: Multivitamin Tab PO SCH (08:50)
[2021-11-18] MEDS: Potassium Chloride 20 MEQ Tab.ER PO SCH (08:50)
[2021-11-18] MEDS: Cyanocobalamin (Vitamin B12) 1,000 MCG Tab PO SCH (08:50)
[2021-11-18] MEDS: Enoxaparin 30 MG/0.3 ML Syringe SUBCUT SCH (08:51)
[2021-11-18] MEDS: Propranolol 20 MG Tab PO SCH ×2 (08:55→18:19)
[2021-11-18] MEDS: Losartan 25 MG Tab PO SCH (08:55)
[2021-11-18] MEDS: Nystatin Topical Powder 15 GM Bottle TOP SCH ×3 (08:57→18:20)
[2021-11-18] MEDS: Atropine/Diphenoxylate 0.025-2.5 MG Tab PO PRN (15:19)
[2021-11-18] MEDS: Melatonin 3 MG Tab PO SCH (19:47)
[2021-11-18] MEDS: QUEtiapine 25 MG Tab PO SCH (19:47)
[2021-11-18] MEDS: Simvastatin 20 MG Tab PO SCH (19:47)
[2021-11-19] MEDS: hydrOXYzine Pamoate 25 MG Cap PO PRN (06:24)
[2021-11-19] MEDS: Propranolol 20 MG Tab PO SCH ×2 (08:33→18:01)
[2021-11-19] MEDS: Levothyroxine 25 MCG Tab PO SCH (08:33)
[2021-11-19] MEDS: Cyanocobalamin (Vitamin B12) 1,000 MCG Tab PO SCH (08:34)
[2021-11-19] MEDS: Multivitamin Tab PO SCH (08:34)
[2021-11-19] MEDS: Potassium Chloride 20 MEQ Tab.ER PO SCH (08:34)
[2021-11-19] MEDS: Losartan 25 MG Tab PO SCH (08:35)
[2021-11-19] MEDS: FLUoxetine 20 MG Cap PO SCH (08:36)
[2021-11-19] MEDS: Cholecalciferol (Vitamin D3) 25 MCG Tab PO SCH (08:36)
[2021-11-19] MEDS: Enoxaparin 30 MG/0.3 ML Syringe SUBCUT SCH (08:37)
[2021-11-19] MEDS: Nystatin Topical Powder 15 GM Bottle TOP SCH ×3 (08:37→18:01)
[2021-11-19] MEDS: QUEtiapine 25 MG Tab PO SCH (19:49)
[2021-11-19] MEDS: Melatonin 3 MG Tab PO SCH (19:50)
[2021-11-19] MEDS: Simvastatin 20 MG Tab PO SCH (19:50)
[2021-11-20 07:32] LABS: ANION GAP 7.6 meq/L (7-15)
[2021-11-20] MEDS: Losartan 25 MG Tab PO SCH (07:44)
[2021-11-20] MEDS: Cholecalciferol (Vitamin D3) 25 MCG Tab PO SCH (07:44)
[2021-11-20] MEDS: FLUoxetine 20 MG Cap PO SCH (07:44)
[2021-11-20] MEDS: Cyanocobalamin (Vitamin B12) 1,000 MCG Tab PO SCH (07:45)
[2021-11-20] MEDS: Nystatin Topical Powder 15 GM Bottle TOP SCH ×3 (07:45→17:02)
[2021-11-20] MEDS: Potassium Chloride 20 MEQ Tab.ER PO SCH (07:45)
[2021-11-20] MEDS: Levothyroxine 25 MCG Tab PO SCH (07:45)
[2021-11-20] MEDS: Enoxaparin 30 MG/0.3 ML Syringe SUBCUT SCH (07:45)
[2021-11-20] MEDS: Multivitamin Tab PO SCH (07:45)
[2021-11-20] MEDS: Propranolol 20 MG Tab PO SCH ×2 (07:45→17:02)
[2021-11-20] MEDS: Atropine/Diphenoxylate 0.025-2.5 MG Tab PO PRN ×2 (11:43→19:53)
[2021-11-20] MEDS: QUEtiapine 25 MG Tab PO SCH (19:53)
[2021-11-20] MEDS: Melatonin 3 MG Tab PO SCH (19:53)
[2021-11-20] MEDS: Simvastatin 20 MG Tab PO SCH (19:53)
[2021-11-21] MEDS: Potassium Chloride 20 MEQ Tab.ER PO SCH (08:21)
[2021-11-21] MEDS: Propranolol 20 MG Tab PO SCH ×2 (08:22→17:21)
[2021-11-21] MEDS: Cyanocobalamin (Vitamin B12) 1,000 MCG Tab PO SCH (08:23)
[2021-11-21] MEDS: Losartan 25 MG Tab PO SCH (08:23)
[2021-11-21] MEDS: Levothyroxine 25 MCG Tab PO SCH (08:23)
[2021-11-21] MEDS: FLUoxetine 20 MG Cap PO SCH (08:23)
[2021-11-21] MEDS: Multivitamin Tab PO SCH (08:23)
[2021-11-21] MEDS: Enoxaparin 30 MG/0.3 ML Syringe SUBCUT SCH (08:24)
[2021-11-21] MEDS: Nystatin Topical Powder 15 GM Bottle TOP SCH ×3 (08:24→17:26)
[2021-11-21] MEDS: Cholecalciferol (Vitamin D3) 25 MCG Tab PO SCH (08:24)
[2021-11-21 08:32] LABS: ANION GAP 8.4 meq/L (7-15)
[2021-11-21] MEDS ORDERED: LORazepam 0.5 MG Tab PO PRN (17:33)
[2021-11-21] MEDS: Gentamicin 0.1% Crm 15 GM Tube TOP SCH (18:40)
[2021-11-21] MEDS: Furosemide 20 MG/2 ML VIAL IVPUSH ONE ×2 (18:41→18:58)
[2021-11-21] MEDS: Sodium Chloride 0.9% 10 ML Syringe FLUSH PRN (18:41)
[2021-11-21] MEDS ORDERED: Furosemide 20 MG Tab PO ONE (20:00)
[2021-11-21] MEDS: QUEtiapine 25 MG Tab PO SCH (20:14)
[2021-11-21] MEDS: Melatonin 3 MG Tab PO SCH (20:14)
[2021-11-21] MEDS: Simvastatin 20 MG Tab PO SCH (20:14)
[2021-11-21] MEDS: Acetaminophen 325 MG Tab PO PRN (20:32)
[2021-11-22] MEDS ORDERED: Iopamidol 612 MG/ML 100 ML Bottle IVPUSH ONE (08:00)
[2021-11-22] MEDS: Cholecalciferol (Vitamin D3) 25 MCG Tab PO SCH (09:31)
[2021-11-22] MEDS: Potassium Chloride 20 MEQ Tab.ER PO SCH (09:31)
[2021-11-22] MEDS: Levothyroxine 25 MCG Tab PO SCH (09:31)
[2021-11-22] MEDS: FLUoxetine 20 MG Cap PO SCH (09:31)
[2021-11-22] MEDS: Cyanocobalamin (Vitamin B12) 1,000 MCG Tab PO SCH (09:32)
[2021-11-22] MEDS: Losartan 25 MG Tab PO SCH (09:32)
[2021-11-22] MEDS: Propranolol 20 MG Tab PO SCH ×2 (09:32→17:04)
[2021-11-22] MEDS: Fluconazole 100 MG Tab PO SCH (09:32)
[2021-11-22] MEDS: Nystatin Topical Powder 15 GM Bottle TOP SCH ×3 (09:33→17:04)
[2021-11-22] MEDS: Gentamicin 0.1% Crm 15 GM Tube TOP SCH ×3 (09:33→17:05)
[2021-11-22] MEDS: Multivitamin Tab PO SCH (09:37)
[2021-11-22] MEDS: Enoxaparin 30 MG/0.3 ML Syringe SUBCUT SCH (09:37)
[2021-11-22] MEDS: Lactobacillus Rhamnosus GG (Probiotic) Cap PO SCH (17:54)
[2021-11-22] MEDS: Furosemide 40 MG Tab PO SCH (17:54)
[2021-11-22] MEDS: Melatonin 3 MG Tab PO SCH (19:22)
[2021-11-22] MEDS: QUEtiapine 25 MG Tab PO SCH (19:22)
[2021-11-22] MEDS: Simvastatin 20 MG Tab PO SCH (19:22)
[2021-11-22] MEDS: Sodium Chloride 0.9% 10 ML Syringe FLUSH PRN (19:45)
[2021-11-23] MEDS: Multivitamin Tab PO SCH (07:36)
[2021-11-23] MEDS: Levothyroxine 25 MCG Tab PO SCH (07:36)
[2021-11-23] MEDS: Potassium Chloride 20 MEQ Tab.ER PO SCH (07:36)
[2021-11-23] MEDS: Cholecalciferol (Vitamin D3) 25 MCG Tab PO SCH (07:36)
[2021-11-23] MEDS: FLUoxetine 20 MG Cap PO SCH (07:37)
[2021-11-23] MEDS: Propranolol 20 MG Tab PO SCH (07:38)
[2021-11-23] MEDS: Fluconazole 100 MG Tab PO SCH (07:38)
[2021-11-23] MEDS: Lactobacillus Rhamnosus GG (Probiotic) Cap PO SCH (07:38)
[2021-11-23] MEDS: Furosemide 40 MG Tab PO SCH (07:39)
[2021-11-23] MEDS: Gentamicin 0.1% Crm 15 GM Tube TOP SCH ×2 (07:39→11:30)
[2021-11-23] MEDS: Nystatin Topical Powder 15 GM Bottle TOP SCH ×2 (07:40→11:30)
[2021-11-23] MEDS: Enoxaparin 30 MG/0.3 ML Syringe SUBCUT SCH (07:43)
[2021-11-23] MEDS: Cyanocobalamin (Vitamin B12) 1,000 MCG Tab PO SCH (07:43)
[2021-11-23] MEDS: Losartan 25 MG Tab PO SCH (07:47)
[2021-11-23 08:54] LABS: POTASSIUM,POC 3.8 mmol/L (3.5-4.5)
[2021-11-23 20:10] VITALS: BP 131/72; PULSE 82
[2021-11-24] MEDS ORDERED: Cephalexin 250 MG Cap PO SCH (08:00)
== END 2021-11-23 17:30 | disposition swing bed (61) | DRG 812 ==
LOC: LL.ED 20:39 → LL.MS 22:35
PROVIDERS: ADMIT Hospitalist; ATTEND Physician Assistant
PROC: 30233N1 Transfusion of Nonautologous Red Blood Cells into Peripheral Vein, Percutaneous Approach (ICD-10-PCS; principal; 2021-11-16)
DX: D50.9 Iron deficiency anemia, unspecified (principal); D64.9 Anemia, unspecified; N39.0 Urinary tract infection, site not specified; N17.9 Acute kidney failure, unspecified; E03.9 Hypothyroidism, unspecified; R23.8 Other skin changes; R19.7 Diarrhea, unspecified; R53.1 Weakness; Z66 Do not resuscitate; E87.6 Hypokalemia; R31.9 Hematuria, unspecified; F41.1 Generalized anxiety disorder; K90.0 Celiac disease; B37.2 Candidiasis of skin and nail; R32 Unspecified urinary incontinence; Z96.653 Presence of artificial knee joint, bilateral; Z96.612 Presence of left artificial shoulder joint; H54.7 Unspecified visual loss; E78.00 Pure hypercholesterolemia, unspecified; E78.2 Mixed hyperlipidemia; M81.0 Age-related osteoporosis without current pathological fracture; E66.9 Obesity, unspecified; Z68.37 Body mass index [BMI] 37.0-37.9, adult; I10 Essential (primary) hypertension; Z91.018 Allergy to other foods; E11.9 Type 2 diabetes mellitus without complications; Z88.2 Allergy status to sulfonamides; Z88.8 Allergy status to other drugs, medicaments and biological substances; Z90.49 Acquired absence of other specified parts of digestive tract; Z90.710 Acquired absence of both cervix and uterus; Z79.890 Hormone replacement therapy; Z79.899 Other long term (current) drug therapy
CPT/HCPCS: 36415; 36430; 51702; 71045; 71046; 74177; 80047; 80048; 80053; 81001; 82272; 82947; 83880; 84484; 85008; 85018; 85025; 85027; 86140; 86850; 86900; 86901; 86920; 86922; 93005; 93010; 97110-GP; 97162-GP; 97166-GO; 97530-GP; 97535-GO; 99232; 99233; 99285; A9270-GY; J1650; J1940; J3490; J7030; J7050; P9016; Q0177; Q9967

== ENCOUNTER 2021-11-23 11:55 | Inpatient (IN) | payer MEDICARE, OTHER ==
[2021-11-23] MEDS ORDERED: Sodium Chloride 0.9% 10 ML Syringe FLUSH PRN ×2 (18:24)
[2021-11-23] MEDS ORDERED: Polyethylene Glycol 3350 Powder 17 GM Packet PO PRN (18:24)
[2021-11-23] MEDS ORDERED: LORazepam 0.5 MG Tab PO PRN (18:24)
[2021-11-23] MEDS ORDERED: Calcium Carbonate 500 MG Tab.Chew PO PRN (18:24)
[2021-11-23] MEDS: Melatonin 3 MG Tab PO SCH (20:40)
[2021-11-23] MEDS: Simvastatin 20 MG Tab PO SCH (20:40)
[2021-11-23] MEDS: QUEtiapine 25 MG Tab PO SCH (20:40)
[2021-11-24] MEDS: Levothyroxine 25 MCG Tab PO SCH (07:33)
[2021-11-24] MEDS: Gentamicin 0.1% Crm 15 GM Tube TOP SCH ×4 (09:00→18:04)
[2021-11-24] MEDS: Nystatin Topical Powder 15 GM Bottle TOP SCH ×4 (09:00→18:05)
[2021-11-24] MEDS: FLUoxetine 20 MG Cap PO SCH (09:02)
[2021-11-24] MEDS: Potassium Chloride 20 MEQ Tab.ER PO SCH (09:03)
[2021-11-24] MEDS: Cholecalciferol (Vitamin D3) 25 MCG Tab PO SCH (09:03)
[2021-11-24] MEDS: Multivitamin Tab PO SCH (09:04)
[2021-11-24] MEDS: Cephalexin 250 MG Cap PO SCH (09:04)
[2021-11-24] MEDS: Furosemide 40 MG Tab PO SCH (09:04)
[2021-11-24] MEDS: Lactobacillus Rhamnosus GG (Probiotic) Cap PO SCH ×2 (09:05→18:04)
[2021-11-24] MEDS: Fluconazole 100 MG Tab PO SCH (09:05)
[2021-11-24] MEDS: Cyanocobalamin (Vitamin B12) 1,000 MCG Tab PO SCH (09:05)
[2021-11-24] MEDS: Propranolol 20 MG Tab PO SCH ×2 (09:07→18:04)
[2021-11-24] MEDS: Enoxaparin 30 MG/0.3 ML Syringe SUBCUT SCH (09:07)
[2021-11-24] MEDS: Losartan 25 MG Tab PO SCH (09:11)
[2021-11-24] MEDS: QUEtiapine 25 MG Tab PO SCH (19:36)
[2021-11-24] MEDS: Melatonin 3 MG Tab PO SCH (19:37)
[2021-11-24] MEDS: Simvastatin 20 MG Tab PO SCH (19:37)
[2021-11-24] MEDS: Ciprofloxacin 500 MG Tab PO SCH (19:37)
[2021-11-25] MEDS: Levothyroxine 25 MCG Tab PO SCH (07:49)
[2021-11-25] MEDS: Ciprofloxacin 500 MG Tab PO SCH ×2 (08:56→19:08)
[2021-11-25] MEDS: Cephalexin 250 MG Cap PO SCH (08:56)
[2021-11-25] MEDS: Potassium Chloride 20 MEQ Tab.ER PO SCH (08:57)
[2021-11-25] MEDS: Fluconazole 100 MG Tab PO SCH (08:57)
[2021-11-25] MEDS: FLUoxetine 20 MG Cap PO SCH (08:57)
[2021-11-25] MEDS: Cyanocobalamin (Vitamin B12) 1,000 MCG Tab PO SCH (08:57)
[2021-11-25] MEDS: Propranolol 20 MG Tab PO SCH ×2 (08:58→19:08)
[2021-11-25] MEDS: Cholecalciferol (Vitamin D3) 25 MCG Tab PO SCH (08:58)
[2021-11-25] MEDS: Lactobacillus Rhamnosus GG (Probiotic) Cap PO SCH ×2 (08:58→19:08)
[2021-11-25] MEDS: Multivitamin Tab PO SCH (08:58)
[2021-11-25] MEDS: Enoxaparin 30 MG/0.3 ML Syringe SUBCUT SCH (08:59)
[2021-11-25] MEDS: Losartan 25 MG Tab PO SCH (08:59)
[2021-11-25] MEDS: Nystatin Topical Powder 15 GM Bottle TOP SCH ×3 (09:00→18:30)
[2021-11-25] MEDS: Gentamicin 0.1% Crm 15 GM Tube TOP SCH ×3 (09:00→18:30)
[2021-11-25] MEDS: Furosemide 40 MG Tab PO SCH (09:00)
[2021-11-25] MEDS: Melatonin 3 MG Tab PO SCH (20:16)
[2021-11-25] MEDS: QUEtiapine 25 MG Tab PO SCH (20:16)
[2021-11-25] MEDS: Simvastatin 20 MG Tab PO SCH (20:16)
[2021-11-26] MEDS: Levothyroxine 25 MCG Tab PO SCH (08:49)
[2021-11-26] MEDS: Potassium Chloride 20 MEQ Tab.ER PO SCH (08:49)
[2021-11-26] MEDS: Propranolol 20 MG Tab PO SCH ×2 (08:49→17:53)
[2021-11-26] MEDS: Furosemide 40 MG Tab PO SCH (08:49)
[2021-11-26] MEDS: Fluconazole 100 MG Tab PO SCH (08:50)
[2021-11-26] MEDS: FLUoxetine 20 MG Cap PO SCH (08:50)
[2021-11-26] MEDS: Cyanocobalamin (Vitamin B12) 1,000 MCG Tab PO SCH (08:50)
[2021-11-26] MEDS: Cephalexin 250 MG Cap PO SCH (08:50)
[2021-11-26] MEDS: Cholecalciferol (Vitamin D3) 25 MCG Tab PO SCH (08:50)
[2021-11-26] MEDS: Multivitamin Tab PO SCH (08:50)
[2021-11-26] MEDS: Losartan 25 MG Tab PO SCH (08:50)
[2021-11-26] MEDS: Lactobacillus Rhamnosus GG (Probiotic) Cap PO SCH ×2 (08:50→17:52)
[2021-11-26] MEDS: Ciprofloxacin 500 MG Tab PO SCH (08:50)
[2021-11-26] MEDS: Enoxaparin 30 MG/0.3 ML Syringe SUBCUT SCH (08:50)
[2021-11-26] MEDS: Nystatin Topical Powder 15 GM Bottle TOP SCH ×3 (08:53→17:52)
[2021-11-26] MEDS: Gentamicin 0.1% Crm 15 GM Tube TOP SCH ×3 (08:53→17:52)
[2021-11-26] MEDS ORDERED: Amoxicillin/Clavulanate K 875-125 MG Tab PO SCH (20:00)
[2021-11-26] MEDS: QUEtiapine 25 MG Tab PO SCH (20:54)
[2021-11-26] MEDS: Simvastatin 20 MG Tab PO SCH (20:54)
[2021-11-26] MEDS: Melatonin 3 MG Tab PO SCH (20:54)
[2021-11-27 07:28] LABS: ANION GAP 4.5 meq/L (7-15)
[2021-11-27] MEDS: Enoxaparin 30 MG/0.3 ML Syringe SUBCUT SCH (08:52)
[2021-11-27] MEDS: Lactobacillus Rhamnosus GG (Probiotic) Cap PO SCH ×2 (08:53→18:28)
[2021-11-27] MEDS: Furosemide 40 MG Tab PO SCH (08:53)
[2021-11-27] MEDS: Amoxicillin/Clavulanate K 875-125 MG Tab PO SCH ×2 (08:53→18:28)
[2021-11-27] MEDS: FLUoxetine 20 MG Cap PO SCH (08:53)
[2021-11-27] MEDS: Propranolol 20 MG Tab PO SCH ×2 (08:53→18:28)
[2021-11-27] MEDS: Cephalexin 250 MG Cap PO SCH (08:53)
[2021-11-27] MEDS: Potassium Chloride 20 MEQ Tab.ER PO SCH (08:53)
[2021-11-27] MEDS: Losartan 25 MG Tab PO SCH (08:53)
[2021-11-27] MEDS: Gentamicin 0.1% Crm 15 GM Tube TOP SCH ×3 (08:54→18:29)
[2021-11-27] MEDS: Nystatin Topical Powder 15 GM Bottle TOP SCH ×3 (08:54→18:28)
[2021-11-27] MEDS: Cholecalciferol (Vitamin D3) 25 MCG Tab PO SCH (08:54)
[2021-11-27] MEDS: Cyanocobalamin (Vitamin B12) 1,000 MCG Tab PO SCH (08:54)
[2021-11-27] MEDS: Multivitamin Tab PO SCH (08:54)
[2021-11-27] MEDS: Levothyroxine 25 MCG Tab PO SCH (08:54)
[2021-11-27] MEDS: QUEtiapine 25 MG Tab PO SCH (19:22)
[2021-11-27] MEDS: Melatonin 3 MG Tab PO SCH (19:22)
[2021-11-27] MEDS: Simvastatin 20 MG Tab PO SCH (19:22)
[2021-11-28] MEDS ORDERED: Norflurane/HFc 245FA Medium Stream Spray 103.5 ML Can ONE (08:09)
[2021-11-28] MEDS: Losartan 25 MG Tab PO SCH (08:24)
[2021-11-28] MEDS: Amoxicillin/Clavulanate K 875-125 MG Tab PO SCH ×2 (08:24→18:57)
[2021-11-28] MEDS: Cholecalciferol (Vitamin D3) 25 MCG Tab PO SCH (08:24)
[2021-11-28] MEDS: Propranolol 20 MG Tab PO SCH ×3 (08:24→19:05)
[2021-11-28] MEDS: Multivitamin Tab PO SCH (08:24)
[2021-11-28] MEDS: Furosemide 40 MG Tab PO SCH (08:24)
[2021-11-28] MEDS: Cephalexin 250 MG Cap PO SCH (08:24)
[2021-11-28] MEDS: Lactobacillus Rhamnosus GG (Probiotic) Cap PO SCH ×2 (08:24→18:57)
[2021-11-28] MEDS: Cyanocobalamin (Vitamin B12) 1,000 MCG Tab PO SCH (08:24)
[2021-11-28] MEDS: Levothyroxine 25 MCG Tab PO SCH (08:24)
[2021-11-28] MEDS: Enoxaparin 30 MG/0.3 ML Syringe SUBCUT SCH (08:25)
[2021-11-28] MEDS: FLUoxetine 20 MG Cap PO SCH (08:25)
[2021-11-28] MEDS: Gentamicin 0.1% Crm 15 GM Tube TOP SCH ×3 (08:25→18:58)
[2021-11-28] MEDS: Potassium Chloride 20 MEQ Tab.ER PO SCH (08:25)
[2021-11-28] MEDS: Nystatin Topical Powder 15 GM Bottle TOP SCH ×3 (08:26→18:58)
[2021-11-28] MEDS ORDERED: Norflurane/HFc 245FA Medium Stream Spray 103.5 ML Can TOP PRN (08:27)
[2021-11-28] MEDS: Oxybutynin 5 MG Tab.ER PO SCH (19:04)
[2021-11-28] MEDS: Melatonin 3 MG Tab PO SCH ×2 (19:04→21:06)
[2021-11-28] MEDS: QUEtiapine 25 MG Tab PO SCH ×2 (19:04→21:06)
[2021-11-28] MEDS: Simvastatin 20 MG Tab PO SCH (19:05)
[2021-11-29] MEDS: Levothyroxine 25 MCG Tab PO SCH (08:15)
[2021-11-29] MEDS: Amoxicillin/Clavulanate K 875-125 MG Tab PO SCH ×2 (08:39→20:24)
[2021-11-29] MEDS: Furosemide 40 MG Tab PO SCH (08:39)
[2021-11-29] MEDS: Lactobacillus Rhamnosus GG (Probiotic) Cap PO SCH ×2 (08:39→20:23)
[2021-11-29] MEDS: FLUoxetine 20 MG Cap PO SCH (08:39)
[2021-11-29] MEDS: Cholecalciferol (Vitamin D3) 25 MCG Tab PO SCH (08:40)
[2021-11-29] MEDS: Multivitamin Tab PO SCH (08:40)
[2021-11-29] MEDS: Propranolol 20 MG Tab PO SCH ×2 (08:41→20:24)
[2021-11-29] MEDS: Losartan 25 MG Tab PO SCH (08:41)
[2021-11-29] MEDS: Gentamicin 0.1% Crm 15 GM Tube TOP SCH ×3 (08:45→20:19)
[2021-11-29] MEDS: Potassium Chloride 20 MEQ Tab.ER PO SCH (08:46)
[2021-11-29] MEDS: Nystatin Topical Powder 15 GM Bottle TOP SCH ×3 (08:46→20:18)
[2021-11-29] MEDS: Cyanocobalamin (Vitamin B12) 1,000 MCG Tab PO SCH (08:46)
[2021-11-29] MEDS: Cephalexin 250 MG Cap PO SCH (08:46)
[2021-11-29] MEDS: Atropine/Diphenoxylate 0.025-2.5 MG Tab PO PRN (11:31)
[2021-11-29] MEDS: Oxybutynin 5 MG Tab.ER PO SCH (20:18)
[2021-11-29] MEDS: Melatonin 3 MG Tab PO SCH (20:19)
[2021-11-29] MEDS: Simvastatin 20 MG Tab PO SCH (20:19)
[2021-11-29] MEDS: QUEtiapine 25 MG Tab PO SCH (20:19)
[2021-11-30] MEDS: Gentamicin 0.1% Crm 15 GM Tube TOP SCH ×3 (07:29→17:08)
[2021-11-30] MEDS: Nystatin Topical Powder 15 GM Bottle TOP SCH ×3 (07:31→17:07)
[2021-11-30] MEDS: FLUoxetine 20 MG Cap PO SCH (07:32)
[2021-11-30] MEDS: Cyanocobalamin (Vitamin B12) 1,000 MCG Tab PO SCH (07:32)
[2021-11-30] MEDS: Cholecalciferol (Vitamin D3) 25 MCG Tab PO SCH (07:32)
[2021-11-30] MEDS: Amoxicillin/Clavulanate K 875-125 MG Tab PO SCH ×2 (07:32→17:09)
[2021-11-30] MEDS: Levothyroxine 25 MCG Tab PO SCH (07:33)
[2021-11-30] MEDS: Multivitamin Tab PO SCH (07:33)
[2021-11-30] MEDS: Cephalexin 250 MG Cap PO SCH (07:33)
[2021-11-30] MEDS: Lactobacillus Rhamnosus GG (Probiotic) Cap PO SCH ×2 (07:33→17:08)
[2021-11-30 07:34] LABS: ANION GAP 7.9 meq/L (7-15)
[2021-11-30] MEDS: Potassium Chloride 20 MEQ Tab.ER PO SCH (07:34)
[2021-11-30] MEDS: Furosemide 40 MG Tab PO SCH (07:34)
[2021-11-30] MEDS: Losartan 25 MG Tab PO SCH (07:34)
[2021-11-30] MEDS: Propranolol 20 MG Tab PO SCH ×2 (07:35→17:08)
[2021-11-30] MEDS: QUEtiapine 25 MG Tab PO SCH (20:57)
[2021-11-30] MEDS: Melatonin 3 MG Tab PO SCH (20:57)
[2021-11-30] MEDS: Oxybutynin 5 MG Tab.ER PO SCH (20:57)
[2021-11-30] MEDS: Simvastatin 20 MG Tab PO SCH (20:58)
[2021-12-01] MEDS: Cyanocobalamin (Vitamin B12) 1,000 MCG Tab PO SCH (08:05)
[2021-12-01] MEDS: FLUoxetine 20 MG Cap PO SCH (08:05)
[2021-12-01] MEDS: Furosemide 40 MG Tab PO SCH (08:05)
[2021-12-01] MEDS: Cholecalciferol (Vitamin D3) 25 MCG Tab PO SCH (08:05)
[2021-12-01] MEDS: Gentamicin 0.1% Crm 15 GM Tube TOP SCH ×3 (08:06→17:07)
[2021-12-01] MEDS: Multivitamin Tab PO SCH (08:06)
[2021-12-01] MEDS: Amoxicillin/Clavulanate K 875-125 MG Tab PO SCH ×2 (08:06→17:05)
[2021-12-01] MEDS: Levothyroxine 25 MCG Tab PO SCH (08:06)
[2021-12-01] MEDS: Lactobacillus Rhamnosus GG (Probiotic) Cap PO SCH ×2 (08:06→17:05)
[2021-12-01] MEDS: Nystatin Topical Powder 15 GM Bottle TOP SCH ×3 (08:06→17:06)
[2021-12-01] MEDS: Cephalexin 250 MG Cap PO SCH (08:06)
[2021-12-01] MEDS: Potassium Chloride 20 MEQ Tab.ER PO SCH (08:06)
[2021-12-01] MEDS: Propranolol 20 MG Tab PO SCH ×2 (08:06→17:05)
[2021-12-01] MEDS: Losartan 25 MG Tab PO SCH (08:06)
[2021-12-01] MEDS: Oxybutynin 5 MG Tab.ER PO SCH (19:56)
[2021-12-01] MEDS: QUEtiapine 25 MG Tab PO SCH (19:56)
[2021-12-01] MEDS: Melatonin 3 MG Tab PO SCH (19:56)
[2021-12-01] MEDS: Simvastatin 20 MG Tab PO SCH (19:56)
[2021-12-02] MEDS: Propranolol 20 MG Tab PO SCH ×2 (07:55→17:46)
[2021-12-02] MEDS: Lactobacillus Rhamnosus GG (Probiotic) Cap PO SCH ×2 (07:55→17:46)
[2021-12-02] MEDS: Multivitamin Tab PO SCH (07:55)
[2021-12-02] MEDS: Furosemide 40 MG Tab PO SCH (07:56)
[2021-12-02] MEDS: Amoxicillin/Clavulanate K 875-125 MG Tab PO SCH ×2 (07:56→17:46)
[2021-12-02] MEDS: Cholecalciferol (Vitamin D3) 25 MCG Tab PO SCH (07:56)
[2021-12-02] MEDS: FLUoxetine 20 MG Cap PO SCH (07:57)
[2021-12-02] MEDS: Potassium Chloride 20 MEQ Tab.ER PO SCH (07:58)
[2021-12-02] MEDS: Levothyroxine 25 MCG Tab PO SCH (07:58)
[2021-12-02] MEDS: Cephalexin 250 MG Cap PO SCH (07:58)
[2021-12-02] MEDS: Losartan 25 MG Tab PO SCH (07:59)
[2021-12-02] MEDS: Cyanocobalamin (Vitamin B12) 1,000 MCG Tab PO SCH (07:59)
[2021-12-02] MEDS: Gentamicin 0.1% Crm 15 GM Tube TOP SCH ×3 (08:00→17:49)
[2021-12-02] MEDS: Nystatin Topical Powder 15 GM Bottle TOP SCH ×3 (08:00→17:48)
[2021-12-02] MEDS: Acetaminophen 325 MG Tab PO PRN (15:30)
[2021-12-02] MEDS: QUEtiapine 25 MG Tab PO SCH (21:01)
[2021-12-02] MEDS: Simvastatin 20 MG Tab PO SCH (21:02)
[2021-12-02] MEDS: Melatonin 3 MG Tab PO SCH (21:02)
[2021-12-02] MEDS: Oxybutynin 5 MG Tab.ER PO SCH (21:02)
[2021-12-03] MEDS: Amoxicillin/Clavulanate K 875-125 MG Tab PO SCH ×2 (07:49→17:53)
[2021-12-03] MEDS: Levothyroxine 25 MCG Tab PO SCH (07:49)
[2021-12-03] MEDS: Propranolol 20 MG Tab PO SCH ×2 (07:49→17:53)
[2021-12-03] MEDS: Cephalexin 250 MG Cap PO SCH (07:49)
[2021-12-03] MEDS: Cyanocobalamin (Vitamin B12) 1,000 MCG Tab PO SCH (07:49)
[2021-12-03] MEDS: Losartan 25 MG Tab PO SCH (07:49)
[2021-12-03] MEDS: Lactobacillus Rhamnosus GG (Probiotic) Cap PO SCH ×2 (07:49→17:53)
[2021-12-03] MEDS: Furosemide 40 MG Tab PO SCH (07:49)
[2021-12-03] MEDS: Potassium Chloride 20 MEQ Tab.ER PO SCH (07:50)
[2021-12-03] MEDS: Gentamicin 0.1% Crm 15 GM Tube TOP SCH ×3 (07:50→17:54)
[2021-12-03] MEDS: Nystatin Topical Powder 15 GM Bottle TOP SCH ×3 (07:50→17:54)
[2021-12-03] MEDS: Multivitamin Tab PO SCH (07:50)
[2021-12-03] MEDS: Cholecalciferol (Vitamin D3) 25 MCG Tab PO SCH (07:51)
[2021-12-03] MEDS: Acetaminophen 325 MG Tab PO PRN (08:49)
[2021-12-03] MEDS: FLUoxetine 20 MG Cap PO SCH ×2 (09:06→11:41)
[2021-12-03] MEDS ORDERED: predniSONE 20 MG Tab PO ONE (13:41)
[2021-12-03] MEDS ORDERED: predniSONE 20 MG Tab ONE (17:48)
[2021-12-03] MEDS: Oxybutynin 5 MG Tab.ER PO SCH (20:24)
[2021-12-03] MEDS: QUEtiapine 25 MG Tab PO SCH (20:24)
[2021-12-03] MEDS: Simvastatin 20 MG Tab PO SCH (20:24)
[2021-12-03] MEDS: Melatonin 3 MG Tab PO SCH (20:24)
[2021-12-04] MEDS: Multivitamin Tab PO SCH (07:42)
[2021-12-04] MEDS: Furosemide 40 MG Tab PO SCH (07:42)
[2021-12-04] MEDS: Potassium Chloride 20 MEQ Tab.ER PO SCH (07:42)
[2021-12-04] MEDS: Levothyroxine 25 MCG Tab PO SCH (07:42)
[2021-12-04] MEDS: Propranolol 20 MG Tab PO SCH ×2 (07:42→18:48)
[2021-12-04] MEDS: Cephalexin 250 MG Cap PO SCH (07:42)
[2021-12-04] MEDS: FLUoxetine 20 MG Cap PO SCH (07:43)
[2021-12-04] MEDS: Losartan 25 MG Tab PO SCH (07:43)
[2021-12-04] MEDS: Cyanocobalamin (Vitamin B12) 1,000 MCG Tab PO SCH (07:43)
[2021-12-04] MEDS: Lactobacillus Rhamnosus GG (Probiotic) Cap PO SCH ×2 (07:43→18:48)
[2021-12-04] MEDS: Nystatin Topical Powder 15 GM Bottle TOP SCH ×3 (07:44→18:48)
[2021-12-04] MEDS: Gentamicin 0.1% Crm 15 GM Tube TOP SCH ×3 (07:44→18:49)
[2021-12-04] MEDS: Cholecalciferol (Vitamin D3) 25 MCG Tab PO SCH (07:44)
[2021-12-04] MEDS: QUEtiapine 25 MG Tab PO SCH (20:24)
[2021-12-04] MEDS: Simvastatin 20 MG Tab PO SCH (20:25)
[2021-12-04] MEDS: Oxybutynin 5 MG Tab.ER PO SCH (20:25)
[2021-12-04] MEDS: Melatonin 3 MG Tab PO SCH (20:25)
[2021-12-05] MEDS: Cephalexin 250 MG Cap PO SCH (07:59)
[2021-12-05] MEDS: Cyanocobalamin (Vitamin B12) 1,000 MCG Tab PO SCH (07:59)
[2021-12-05] MEDS: Propranolol 20 MG Tab PO SCH ×2 (07:59→19:05)
[2021-12-05] MEDS: Cholecalciferol (Vitamin D3) 25 MCG Tab PO SCH (07:59)
[2021-12-05] MEDS: Lactobacillus Rhamnosus GG (Probiotic) Cap PO SCH ×2 (07:59→19:05)
[2021-12-05] MEDS: Multivitamin Tab PO SCH (07:59)
[2021-12-05] MEDS: Potassium Chloride 20 MEQ Tab.ER PO SCH (07:59)
[2021-12-05] MEDS: Furosemide 40 MG Tab PO SCH (07:59)
[2021-12-05] MEDS: Levothyroxine 25 MCG Tab PO SCH (07:59)
[2021-12-05] MEDS: Gentamicin 0.1% Crm 15 GM Tube TOP SCH ×3 (08:00→19:06)
[2021-12-05] MEDS: Nystatin Topical Powder 15 GM Bottle TOP SCH ×3 (08:00→19:06)
[2021-12-05] MEDS: FLUoxetine 20 MG Cap PO SCH (08:00)
[2021-12-05] MEDS: Losartan 25 MG Tab PO SCH (08:07)
[2021-12-05 09:13] LABS: ANION GAP 10.7 meq/L (7-15)
[2021-12-05] MEDS ORDERED: Furosemide 40 MG/4 ML VIAL IV ONE (14:43)
[2021-12-05] MEDS ORDERED: diphenhydrAMINE 50 MG/ML SDV IV ONE (14:43)
[2021-12-05] MEDS ORDERED: Sodium Chloride 0.9% 250 ML IV SCH (14:45)
[2021-12-05] MEDS: Acetaminophen 325 MG Tab PO PRN (15:55)
[2021-12-05] MEDS: QUEtiapine 25 MG Tab PO SCH (20:27)
[2021-12-05] MEDS: Simvastatin 20 MG Tab PO SCH (20:27)
[2021-12-05] MEDS: Oxybutynin 5 MG Tab.ER PO SCH (20:27)
[2021-12-05] MEDS: Melatonin 3 MG Tab PO SCH (20:27)
[2021-12-06] MEDS: FLUoxetine 20 MG Cap PO SCH (07:39)
[2021-12-06] MEDS: Cholecalciferol (Vitamin D3) 25 MCG Tab PO SCH (07:39)
[2021-12-06] MEDS: Potassium Chloride 20 MEQ Tab.ER PO SCH (07:39)
[2021-12-06] MEDS: Cyanocobalamin (Vitamin B12) 1,000 MCG Tab PO SCH (07:40)
[2021-12-06] MEDS: Propranolol 20 MG Tab PO SCH ×2 (07:40→17:05)
[2021-12-06] MEDS: Losartan 25 MG Tab PO SCH (07:40)
[2021-12-06] MEDS: Cephalexin 250 MG Cap PO SCH (07:40)
[2021-12-06] MEDS: Lactobacillus Rhamnosus GG (Probiotic) Cap PO SCH ×2 (07:40→17:05)
[2021-12-06] MEDS: Levothyroxine 25 MCG Tab PO SCH (07:41)
[2021-12-06] MEDS: Multivitamin Tab PO SCH (07:41)
[2021-12-06] MEDS: Furosemide 40 MG Tab PO SCH (07:41)
[2021-12-06] MEDS: Nystatin Topical Powder 15 GM Bottle TOP SCH ×3 (07:42→17:04)
[2021-12-06] MEDS: Gentamicin 0.1% Crm 15 GM Tube TOP SCH ×3 (07:42→17:04)
[2021-12-06] MEDS ORDERED: Furosemide 40 MG/4 ML VIAL IV ONE (11:00)
[2021-12-06] MEDS ORDERED: diphenhydrAMINE 50 MG/ML SDV IV ONE (11:00)
[2021-12-06] MEDS: Oxybutynin 5 MG Tab.ER PO SCH (20:18)
[2021-12-06] MEDS: Melatonin 3 MG Tab PO SCH (20:19)
[2021-12-06] MEDS: atorvaSTATin 10 MG Tab PO SCH (20:19)
[2021-12-06] MEDS: QUEtiapine 25 MG Tab PO SCH (20:19)
[2021-12-07] MEDS: Levothyroxine 25 MCG Tab PO SCH (08:03)
[2021-12-07] MEDS: Multivitamin Tab PO SCH (08:54)
[2021-12-07] MEDS: Cephalexin 250 MG Cap PO SCH (08:54)
[2021-12-07] MEDS: Propranolol 20 MG Tab PO SCH ×2 (08:54→18:13)
[2021-12-07] MEDS: FLUoxetine 20 MG Cap PO SCH (08:54)
[2021-12-07] MEDS: Lactobacillus Rhamnosus GG (Probiotic) Cap PO SCH ×2 (08:54→18:13)
[2021-12-07] MEDS: Losartan 25 MG Tab PO SCH (08:55)
[2021-12-07] MEDS: Furosemide 40 MG Tab PO SCH (08:55)
[2021-12-07] MEDS: Cholecalciferol (Vitamin D3) 25 MCG Tab PO SCH (08:55)
[2021-12-07] MEDS: Gentamicin 0.1% Crm 15 GM Tube TOP SCH ×3 (08:56→21:28)
[2021-12-07] MEDS: Nystatin Topical Powder 15 GM Bottle TOP SCH ×3 (08:56→21:28)
[2021-12-07] MEDS: Potassium Chloride 20 MEQ Tab.ER PO SCH (08:56)
[2021-12-07] MEDS: Cyanocobalamin (Vitamin B12) 1,000 MCG Tab PO SCH (08:56)
[2021-12-07] MEDS: Acetaminophen 325 MG Tab PO PRN (10:39)
[2021-12-07] MEDS: hydrOXYzine Pamoate 25 MG Cap PO PRN (10:44)
[2021-12-07] MEDS: Ondansetron 4 MG Tab.DIS PO PRN (20:10)
[2021-12-07] MEDS: Melatonin 3 MG Tab PO SCH (21:29)
[2021-12-07] MEDS: atorvaSTATin 10 MG Tab PO SCH (21:29)
[2021-12-07] MEDS: Oxybutynin 5 MG Tab.ER PO SCH (21:29)
[2021-12-07] MEDS: QUEtiapine 25 MG Tab PO SCH (21:29)
[2021-12-08] MEDS: Potassium Chloride 20 MEQ Tab.ER PO SCH (09:21)
[2021-12-08] MEDS: Cholecalciferol (Vitamin D3) 25 MCG Tab PO SCH (09:21)
[2021-12-08] MEDS: Lactobacillus Rhamnosus GG (Probiotic) Cap PO SCH ×2 (09:22→19:02)
[2021-12-08] MEDS: Cephalexin 250 MG Cap PO SCH (09:22)
[2021-12-08] MEDS: Levothyroxine 25 MCG Tab PO SCH (09:22)
[2021-12-08] MEDS: FLUoxetine 20 MG Cap PO SCH (09:22)
[2021-12-08] MEDS: Cyanocobalamin (Vitamin B12) 1,000 MCG Tab PO SCH (09:23)
[2021-12-08] MEDS: Losartan 25 MG Tab PO SCH (09:23)
[2021-12-08] MEDS: Multivitamin Tab PO SCH (09:23)
[2021-12-08] MEDS: Furosemide 40 MG Tab PO SCH (09:23)
[2021-12-08] MEDS: Propranolol 20 MG Tab PO SCH ×2 (09:23→19:02)
[2021-12-08] MEDS: Nystatin Topical Powder 15 GM Bottle TOP SCH ×3 (09:24→19:02)
[2021-12-08] MEDS: Gentamicin 0.1% Crm 15 GM Tube TOP SCH ×3 (09:24→19:02)
[2021-12-08] MEDS: hydrOXYzine Pamoate 25 MG Cap PO PRN ×2 (10:46→20:29)
[2021-12-08] MEDS: Ondansetron 4 MG Tab.DIS PO PRN ×2 (12:22→19:02)
[2021-12-08] MEDS: Melatonin 3 MG Tab PO SCH (20:29)
[2021-12-08] MEDS: QUEtiapine 25 MG Tab PO SCH (20:29)
[2021-12-08] MEDS: atorvaSTATin 10 MG Tab PO SCH (20:29)
[2021-12-08] MEDS: Oxybutynin 5 MG Tab.ER PO SCH (20:29)
[2021-12-09] MEDS: hydrOXYzine Pamoate 25 MG Cap PO PRN (07:11)
[2021-12-09] MEDS: Levothyroxine 25 MCG Tab PO SCH (07:11)
[2021-12-09] MEDS: Propranolol 20 MG Tab PO SCH ×2 (07:20→19:35)
[2021-12-09] MEDS: Cholecalciferol (Vitamin D3) 25 MCG Tab PO SCH (07:20)
[2021-12-09] MEDS: Lactobacillus Rhamnosus GG (Probiotic) Cap PO SCH ×2 (07:21→19:35)
[2021-12-09] MEDS: Cephalexin 250 MG Cap PO SCH (07:21)
[2021-12-09] MEDS: Cyanocobalamin (Vitamin B12) 1,000 MCG Tab PO SCH (07:21)
[2021-12-09] MEDS: Furosemide 40 MG Tab PO SCH (07:22)
[2021-12-09] MEDS: Multivitamin Tab PO SCH (07:22)
[2021-12-09] MEDS: FLUoxetine 20 MG Cap PO SCH (07:22)
[2021-12-09] MEDS: Losartan 25 MG Tab PO SCH (07:23)
[2021-12-09] MEDS: Potassium Chloride 20 MEQ Tab.ER PO SCH (07:23)
[2021-12-09] MEDS: Nystatin Topical Powder 15 GM Bottle TOP SCH ×3 (07:24→18:28)
[2021-12-09] MEDS: Gentamicin 0.1% Crm 15 GM Tube TOP SCH ×3 (07:31→18:28)
[2021-12-09] MEDS: Ondansetron 4 MG Tab.DIS PO PRN ×2 (07:34→13:36)
[2021-12-09] MEDS: busPIRone 15 MG Tab PO SCH ×2 (12:14→19:35)
[2021-12-09] MEDS: Acetaminophen 325 MG Tab PO PRN (16:20)
[2021-12-09] MEDS: Oxybutynin 5 MG Tab.ER PO SCH (19:35)
[2021-12-09] MEDS: atorvaSTATin 10 MG Tab PO SCH (19:35)
[2021-12-09] MEDS: Melatonin 3 MG Tab PO SCH (19:36)
[2021-12-09] MEDS: QUEtiapine 25 MG Tab PO SCH (19:36)
[2021-12-10] MEDS: Acetaminophen 325 MG Tab PO PRN ×2 (02:21→20:30)
[2021-12-10] MEDS: Multivitamin Tab PO SCH (08:01)
[2021-12-10] MEDS: Lactobacillus Rhamnosus GG (Probiotic) Cap PO SCH ×2 (08:02→17:13)
[2021-12-10] MEDS: Levothyroxine 25 MCG Tab PO SCH (08:02)
[2021-12-10] MEDS: Cholecalciferol (Vitamin D3) 25 MCG Tab PO SCH (08:03)
[2021-12-10] MEDS: FLUoxetine 20 MG Cap PO SCH (08:03)
[2021-12-10] MEDS: Propranolol 20 MG Tab PO SCH ×2 (08:04→17:13)
[2021-12-10] MEDS: busPIRone 15 MG Tab PO SCH ×2 (08:04→17:12)
[2021-12-10] MEDS: Cephalexin 250 MG Cap PO SCH (08:04)
[2021-12-10] MEDS: Cyanocobalamin (Vitamin B12) 1,000 MCG Tab PO SCH (08:05)
[2021-12-10] MEDS: Furosemide 40 MG Tab PO SCH (08:06)
[2021-12-10] MEDS: Losartan 25 MG Tab PO SCH (08:06)
[2021-12-10] MEDS: Potassium Chloride 20 MEQ Tab.ER PO SCH (08:06)
[2021-12-10] MEDS: Nystatin Topical Powder 15 GM Bottle TOP SCH ×3 (08:07→17:13)
[2021-12-10] MEDS: Gentamicin 0.1% Crm 15 GM Tube TOP SCH ×3 (08:07→17:13)
[2021-12-10] MEDS: Ondansetron 4 MG Tab.DIS PO PRN (09:07)
[2021-12-10] MEDS: Atropine/Diphenoxylate 0.025-2.5 MG Tab PO PRN (14:11)
[2021-12-10] MEDS: QUEtiapine 25 MG Tab PO SCH (20:30)
[2021-12-10] MEDS: Melatonin 3 MG Tab PO SCH (20:31)
[2021-12-10] MEDS: Oxybutynin 5 MG Tab.ER PO SCH (20:31)
[2021-12-10] MEDS: atorvaSTATin 10 MG Tab PO SCH (20:31)
[2021-12-11] MEDS: Levothyroxine 25 MCG Tab PO SCH (08:06)
[2021-12-11] MEDS: busPIRone 15 MG Tab PO SCH (08:07)
[2021-12-11] MEDS: Losartan 25 MG Tab PO SCH (08:08)
[2021-12-11] MEDS: Propranolol 20 MG Tab PO SCH (08:09)
[2021-12-11] MEDS: Cephalexin 250 MG Cap PO SCH (08:09)
[2021-12-11] MEDS: Lactobacillus Rhamnosus GG (Probiotic) Cap PO SCH (08:09)
[2021-12-11] MEDS: Furosemide 40 MG Tab PO SCH (08:10)
[2021-12-11] MEDS: Potassium Chloride 20 MEQ Tab.ER PO SCH (08:10)
[2021-12-11] MEDS: FLUoxetine 20 MG Cap PO SCH (08:11)
[2021-12-11] MEDS: Multivitamin Tab PO SCH (08:11)
[2021-12-11] MEDS: Cyanocobalamin (Vitamin B12) 1,000 MCG Tab PO SCH (08:12)
[2021-12-11] MEDS: Cholecalciferol (Vitamin D3) 25 MCG Tab PO SCH (08:12)
[2021-12-11 08:13] VITALS: BP 153/68
[2021-12-11] MEDS: Gentamicin 0.1% Crm 15 GM Tube TOP SCH (08:14)
[2021-12-11] MEDS: Nystatin Topical Powder 15 GM Bottle TOP SCH (08:14)
[2021-12-11] MEDS: hydrOXYzine Pamoate 25 MG Cap PO PRN (09:14)
[2021-12-11 09:32] VITALS: PULSE 81
== END 2021-12-11 11:45 | disposition home or self-care (01) | DRG 948 ==
LOC: LL.MS 18:30
PROVIDERS: ADMIT Physician Assistant; ATTEND Physician Assistant
PROC: 30233N1 Transfusion of Nonautologous Red Blood Cells into Peripheral Vein, Percutaneous Approach (ICD-10-PCS; principal; 2021-12-06)
DX: R53.81 Other malaise (principal); D50.9 Iron deficiency anemia, unspecified; E03.9 Hypothyroidism, unspecified; R19.7 Diarrhea, unspecified; R23.8 Other skin changes; I10 Essential (primary) hypertension; F41.9 Anxiety disorder, unspecified; N32.81 Overactive bladder
CPT/HCPCS: 36415; 36416; 36430; 51702; 80053; 81001; 81003; 82247; 82248; 82272; 82668; 82746; 83010; 83615; 83880; 85008; 85014; 85018; 85025; 86850; 86900; 86901; 86920; 86922; 87045; 87046; 87070; 87086; 87088; 87186; 87205; 97110-GO; 97110-GP; 97129-GO; 97162-GP; 97530-GO; 97530-GP; 97535-GO; A9270-GY; J1200; J1650; J1940; J3490; J7050; J7512; P9016; Q0177

== ENCOUNTER 2021-12-18 22:01 | Inpatient (IN) | payer MEDICARE, OTHER ==
[2021-12-19] MEDS ORDERED: busPIRone 15 MG Tab ONE (18:00)
[2021-12-19] MEDS ORDERED: Sodium Chloride 0.9% 10 ML Syringe ONE (18:00)
[2021-12-19] MEDS ORDERED: atorvaSTATin 10 MG Tab ONE (18:00)
[2021-12-19] MEDS ORDERED: Oxybutynin 5 MG Tab ONE (18:00)
[2021-12-19] MEDS ORDERED: hydrOXYzine Pamoate 25 MG Cap ONE (18:00)
[2021-12-19] MEDS ORDERED: Ciprofloxacin 500 MG Tab ONE (18:00)
[2022-01-14 13:10] LABS: ANION GAP 9.5 meq/L (7-15); CHLORIDE,CL 106 mmol/L (98-107); SODIUM,NA 140 mmol/L (136-145)
[2022-01-14 13:11] LABS: ESTIMATED GFR 53 mL/min (>=60)
== END 2021-12-19 20:23 | DRG 812 ==
LOC: LL.ED 22:01 → LL.ZCENSUS 12-19 10:00
PROVIDERS: ADMIT Family Medicine; ATTEND Family Medicine
DX: D64.9 Anemia, unspecified (principal); N39.0 Urinary tract infection, site not specified; I10 Essential (primary) hypertension; E78.5 Hyperlipidemia, unspecified; F41.9 Anxiety disorder, unspecified; F32.A Depression, unspecified; Z20.822 Contact with and (suspected) exposure to COVID-19; E11.9 Type 2 diabetes mellitus without complications; Z79.4 Long term (current) use of insulin
CPT/HCPCS: 36415; 80053; 81001; 81003; 85025; 86850; 86900; 86901; 87086; 87088; 87186; 99284; A9270-GY; J3490; Q0177; U0002

== ENCOUNTER 2022-02-11 21:49 | Observation (INO) | payer MEDICARE, OTHER ==
[2022-02-11] MEDS ORDERED: Sodium Chloride 0.9% 10 ML Syringe FLUSH PRN (22:20)
[2022-02-11 22:46] LABS: CHLORIDE,CL 97 mmol/L (98-107); SODIUM,NA 133 mmol/L (136-145)
[2022-02-11 22:48] LABS: ANION GAP 19.3 meq/L (7-15)
[2022-02-11 22:49] LABS: ESTIMATED GFR 30 mL/min (>=60)
[2022-02-11] MEDS ORDERED: 50% Dextrose in Water 50 ML Syringe IVPUSH PRN (22:50)
[2022-02-11] MEDS ORDERED: Glucagon,Human Recombinant 1 MG Vial IM PRN (22:50)
[2022-02-11] MEDS ORDERED: Insulin Regular, Human 100 Units/ML 3 ML Vial IV ONE (22:50)
[2022-02-11 22:52] LABS: PTT,PARTIAL THROMBOPLSTIN TIME 18.3 SEC (23.6-29.8)
[2022-02-11] MEDS ORDERED: Sodium Chloride 0.9% 1,000 ML IV SCH (23:00)
[2022-02-11 23:16] LABS: CORONAVIRUS COVID-19 NAA NEGATIVE (NEGATIVE); RESPIRATORY SYNCYTIAL VIR NAA NEGATIVE (NEGATIVE)
[2022-02-11 23:42] LABS: PCO2 ARTERIAL,POC 29 mmHg (35-48)
[2022-02-12] MEDS ORDERED: Sodium Chloride 0.9% 1,000 ML IV SCH (01:45)
[2022-02-12] MEDS: Apixaban 5 MG Tab PO SCH ×2 (02:22→07:38)
[2022-02-12] MEDS ORDERED: LORazepam 0.5 MG Tab PO PRN (09:11)
[2022-02-12] MEDS ORDERED: Acetaminophen 650 MG Tab.ER PO PRN (09:11)
[2022-02-12] MEDS ORDERED: Furosemide 40 MG Tab PO SCH (09:15)
[2022-02-12] MEDS ORDERED: Methotrexate 2.5 MG Tab PO SCH (09:15)
[2022-02-12] MEDS ORDERED: Potassium Chloride 20 MEQ Tab.ER PO SCH (09:15)
[2022-02-12] MEDS ORDERED: amLODIPine 5 MG Tab PO SCH (09:15)
[2022-02-12] MEDS ORDERED: DULoxetine 30 MG Cap PO SCH (09:15)
[2022-02-12 09:29] LABS: ANION GAP 11.4 meq/L (7-15); CHLORIDE,CL 103 mmol/L (98-107); SODIUM,NA 138 mmol/L (136-145)
[2022-02-12 09:51] LABS: ESTIMATED GFR 51 mL/min (>=60)
[2022-02-12] MEDS ORDERED: Calcium Carbonate 500 MG Tab.Chew PO PRN (10:00)
[2022-02-12] MEDS ORDERED: Acetaminophen 325 MG Tab PO PRN (10:12)
[2022-02-12] MEDS ORDERED: Loperamide 2 MG Tab PO PRN (10:20)
[2022-02-12] MEDS ORDERED: Polyvinyl Alcohol 1.4% Ophth Soln 15 ML Bottle EYEBOTH PRN (10:23)
[2022-02-12 12:28] VITALS: BP 114/57; PULSE 95
[2022-02-12] MEDS ORDERED: Propranolol 20 MG Tab PO SCH (18:00)
[2022-02-12] MEDS ORDERED: atorvaSTATin 10 MG Tab PO SCH (20:00)
[2022-02-12] MEDS ORDERED: ESTRADIOL VAG SCH (20:00)
[2022-02-12] MEDS ORDERED: QUEtiapine 25 MG Tab PO SCH (20:00)
[2022-02-12] MEDS ORDERED: Oxybutynin 5 MG Tab.ER PO SCH (20:00)
[2022-02-13] MEDS ORDERED: Cholecalciferol (Vitamin D3) 25 MCG Tab PO SCH (08:00)
[2022-02-13] MEDS ORDERED: Losartan 50 MG Tab PO SCH (08:00)
[2022-02-13] MEDS ORDERED: Omeprazole 20 MG Cap.CR PO SCH (08:00)
[2022-02-13] MEDS ORDERED: metFORMIN 500 MG Tab PO SCH (08:00)
[2022-02-14] MEDS ORDERED: Alendronate 70 MG Tab PO SCH (07:00)
== END 2022-02-12 15:40 ==
LOC: LL.ED 21:49 → LL.MS 02-12 00:45
PROVIDERS: ADMIT Physician Assistant; ATTEND Physician Assistant
DX: I10 Essential (primary) hypertension (principal); R47.81 Slurred speech; E78.00 Pure hypercholesterolemia, unspecified; E11.00 Type 2 diabetes mellitus with hyperosmolarity without nonketotic hyperglycemic-hyperosmolar coma (NKHHC); E03.9 Hypothyroidism, unspecified; E66.9 Obesity, unspecified; Z79.899 Other long term (current) drug therapy; Z79.84 Long term (current) use of oral hypoglycemic drugs; Z79.4 Long term (current) use of insulin; Z20.822 Contact with and (suspected) exposure to COVID-19; Z88.2 Allergy status to sulfonamides; Z91.018 Allergy to other foods; Z88.8 Allergy status to other drugs, medicaments and biological substances; Z90.49 Acquired absence of other specified parts of digestive tract; Z90.710 Acquired absence of both cervix and uterus; Z96.612 Presence of left artificial shoulder joint; Z96.653 Presence of artificial knee joint, bilateral
CPT/HCPCS: 0241U; 36415; 70450; 71045; 80053; 81003; 82803; 82947; 83605; 83735; 84100; 84484; 85025; 85610; 85730; 86140; 87040; 87081; 87430; 93005; 96360; 96361; 99285; A9270; G0378; J1815; J7030